=== PATIENT | male | born 1950 | race Caucasian/White ===

== ENCOUNTER 2017-11-17 15:05 | Inpatient (IN) ==
[2017-11-17] MEDS ORDERED: 0.9 % SODIUM CHLORIDE 1,000 ML IV ONE ×2 (15:30→15:31)
[2017-11-17] MEDS ORDERED: DEXAMETHASONE 10 MG/ML VIAL IV ONE (15:31)
--- NOTE | 2017-11-17 15:35 | Emergency Department Note ---
Weakness HPI - General Chief complaint: Weakness Stated complaint: Recheck, weak Time Seen by Provider: 11/17/17 15:07 Source: patient, family Mode of arrival: ambulatory Limitations: no limitations - History of Present Illness HPI Narrative: 67-year-old male presents with continued fatigue and feeling like his heart is racing on exertion as well as some mild shortness of breath. I saw him yesterday for hypotension and tachycardia. He states he is also feeling dizzy when he stands up. He was feeling a lot better yesterday after 3 L of fluid. He states that today when he is walking he feels some shortness of breath and dizziness. He denies any chest pain. He has been taking his medications as directed and took his metoprolol last evening and took his amlodipine this morning. He has not been checking his blood pressures at home. He denies having any significant bleeding today. He states he spit out some clots as well. Started his warfarin last night. He has adrenal insufficiency and skipped 2 days of his steroids and took them yesterday and today. He states he feels well if he is laying. He said he felt similar to this after his knee surgery. He states he has had diarrheal black stools in the last 2 days after he was bleeding from the mouth. He denies any black tarry stools prior to that. - Related Data Home Medications Medication Instructions Recorded Confirmed ascorbic acid (vitamin C) 500 mg 1 g PO BID tab 01/22/15 11/17/17 chewable tablet cholecalciferol (vitamin D3) 4,000 4,000 unit PO BID cap 01/22/15 11/17/17 unit capsule ferrous sulfate 325 mg (65 mg 975 mg PO BID tab 01/22/15 11/17/17 iron) tablet multivitamin,[id number] 1 tab PO BID tab 01/22/15 11/17/17 tablet vitamin E (dl, acetate) 400 unit 400 unit PO HS cap 01/22/15 11/17/17 capsule Previous Rx's Medication Instructions Recorded Docusate Sodium [Colace] 100 mg PO BID PRN #30 cap 05/19/16 spironolactone 25 mg tablet 25 mg PO QDAY #30 tab 11/11/16 fludrocortisone 0.1 mg tablet 0.1 mg PO QDAY #30 tab 06/22/17 pravastatin 40 mg tablet 40 mg PO QHS #30 tab 06/22/17 lisinopril 20 2 tab PO QDAY #60 tab 06/23/17 mg-hydrochlorothiazide 12.5 mg tablet hydrocortisone 20 mg tablet 20 mg PO BID #60 tab 08/19/17 methocarbamol 750 mg tablet 750 mg PO Q8H PRN #90 tab 09/19/17 warfarin 5 mg tablet 5 mg PO .COMPLEX #30 tab 09/19/17 amlodipine 10 mg tablet 10 mg PO QDAY #30 tab 10/18/17 gemfibrozil 600 mg tablet 600 mg PO BID #60 tab 10/18/17 metoprolol succinate ER 25 mg 25 mg PO HS #30 tab 10/18/17 tablet,extended release 24 hr potassium chloride ER 10 mEq 10 meq PO HS #30 tab 10/18/17 tablet,extended release lisinopril 20 mg tablet 20 mg PO QDAY #30 tab 10/27/17 alprazolam 0.5 mg tablet 0.5 mg PO .COMPLEX #20 tab 11/02/17 hydrocodone 10 mg-acetaminophen 1 - 2 tab PO TID PRN #90 tab 11/02/17 325 mg tablet Allergies Allergy/AdvReac Type Severity Reaction Status Date / Time cephalexin [From Keflex] Allergy Mild Itching Verified 11/17/17 15:05 Review of Systems All systems ED: reviewed and negative except as stated. Past Medical History - Past Medical History Medical history: Reports: other (adrenal insufficiency, factor V leiden, anemia) Psychiatric history: Reports: no psych history Surgical history ED: Reports: non-contributory Family history: Reports: non-contributory - Social History smoking status: Former smoker Physical Exam Limitations: no limitations General appearance: alert, in no apparent distress Head: atraumatic Eye: Present: normal appearance, PERRL, EOMI. Absent: conjunctival injection Neck: Present: normal inspection, full ROM Chest: Present: normal inspection, symmetric chest wall rise Respiratory: Present: normal lung sounds bilaterally Cardiovascular: Present: tachycardia, normal heart sounds Abdominal: Present: soft, normal bowel sounds. Absent: tenderness Extremities: Present: normal inspection, full ROM. Absent: pedal edema Neurological: Present: alert, oriented X3 Psychiatric: Present: normal affect, normal mood Skin: Present: warm, dry, intact Course Vital Signs Temperature 98.3 F 11/17/17 15:05 Pulse Rate 102 H 11/17/17 15:05 Respiratory Rate 18 11/17/17 15:05 Blood Pressure 108/64 11/17/17 15:05 Pulse Oximetry (%) 100 11/17/17 15:05 Temperature 98.3 F 11/17/17 15:05 Pulse Rate 117 H 11/17/17 17:46 Respiratory Rate 19 11/17/17 17:46 Blood Pressure 123/63 11/17/17 17:46 Pulse Oximetry (%) 100 11/17/17 17:46 Weakness - MDM Narrative Medical decision making narrative: Significant drop in hemoglobin. Maxwell was consulted. His bleeding in his gums has stopped and he will do a scope if he has continued bleeding. He has been transfused 2 units of blood and will be admitted to the ICU - Lab Data Lab results reviewed: Yes I reviewed the patient's lab results. Result diagrams: 11/17/17 16:03 11/17/17 15:28 Lab Results 11/17/17 11/17/17 11/17/17 Range/Units 15:28 15:28 15:28 WBC 13.7 H (4.5-11.0) K/mcL RBC 1.86 L (4.50-5.90) M/mcL Hgb 6.3 L* (13.5-16.5) g/dL Hct 18.4 L* (41.0-55.0) % POC Hct 17.0 L* (41.0-55.0) % MCV 98.6 (80.0-100.0) fL MCH 33.7 (26.0-34.0) pg MCHC 34.2 (31.0-36.0) g/dL RDW 13.8 (11.5-14.5) % Plt Count 158 (140-440) K/mcL MPV 8.6 (7.4-10.4) fL Gran % 82.7 H (38.0-78.0) % Lymph % (Auto) 9.7 L (15.5-49.0) % [place] % (Auto) 7.2 (1.0-12.0) % Eos % (Auto) 0.3 (0.0-7.0) % Baso % (Auto) 0.1 (0.0-2.0) % Gran # 11.3 H (1.8-8.0) K/mcL Lymph # (Auto) 1.3 L (1.5-4.8) K/mcL [place] # (Auto) 1.0 H (0.1-0.9) K/mcL Eos # (Auto) 0 (0.0-0.7) K/mcL Baso # (Auto) 0 (0.0-0.3) K/mcL PT (11.9-14.5) sec INR (0.9-1.1) D-Dimer (0.00-0.40) ug/ml VBG Lactic Acid (0.5-2.2) mmol/L POC Sodium 143 (133-145) mmol/L Sodium 143 (133-145) mmol/L POC Potassium 3.8 (3.3-5.1) mmol/L Potassium 3.9 (3.3-5.1) mmol/L POC Chloride 112 H (96-108) mmol/L Chloride 108 (96-108) mmol/L Carbon Dioxide 19 L (22-30) mmol/L POC Total CO2 19 L (22-30) mmol/L Anion Gap 16.0 (8-16) POC BUN 104 H* (8-23) mg/dl BUN 98 H (8-23) mg/dl Creatinine 1.6 H (0.7-1.2) mg/dl POC Creatinine 1.5 H (0.7-1.2) mg/dl GFR Calculation 44 Glucose 123 H (70-105) mg/dL POC Glucose 121 H (70-105) mg/dL Calcium 9.2 (8.6-10.4) mg/dl POC WB Ioniz Calcium 1.32 (1.16-1.32) mmol/L Total Bilirubin 0.2 (0.0-1.0) mg/dL AST 22 (0-37) U/l ALT 26 (0-40) U/l Alkaline Phosphatase 43 (39-117) U/L Troponin T (0-0.03) ng/ml C-Reactive Protein 1.4 H (0.0-0.8) mg/dl NT-Pro-B Natriuret Pep (0-125) pg/ml Total Protein 5.5 L (5.9-8.4) gm/dL Albumin 3.6 (3.2-5.2) gm/dL Globulin 1.9 L (2.2-3.7) gm/dL Albumin/Globulin Ratio 1.9 (1.0-2.3) Procalcitonin 0.50 (<0.10) ng/mL 11/17/17 11/17/17 11/17/17 Range/Units 15:30 15:30 15:30 WBC (4.5-11.0) K/mcL RBC (4.50-5.90) M/mcL Hgb (13.5-16.5) g/dL Hct (41.0-55.0) % POC Hct (41.0-55.0) % MCV (80.0-100.0) fL MCH (26.0-34.0) pg MCHC (31.0-36.0) g/dL RDW (11.5-14.5) % Plt Count (140-440) K/mcL MPV (7.4-10.4) fL Gran % (38.0-78.0) % Lymph % (Auto) (15.5-49.0) % [place] % (Auto) (1.0-12.0) % Eos % (Auto) (0.0-7.0) % Baso % (Auto) (0.0-2.0) % Gran # (1.8-8.0) K/mcL Lymph # (Auto) (1.5-4.8) K/mcL [place] # (Auto) (0.1-0.9) K/mcL Eos # (Auto) (0.0-0.7) K/mcL Baso # (Auto) (0.0-0.3) K/mcL PT 19.2 H (11.9-14.5) sec INR 1.6 H (0.9-1.1) D-Dimer (0.00-0.40) ug/ml VBG Lactic Acid 1.5 (0.5-2.2) mmol/L POC Sodium (133-145) mmol/L Sodium (133-145) mmol/L POC Potassium (3.3-5.1) mmol/L Potassium (3.3-5.1) mmol/L POC Chloride (96-108) mmol/L Chloride (96-108) mmol/L Carbon Dioxide (22-30) mmol/L POC Total CO2 (22-30) mmol/L Anion Gap (8-16) POC BUN (8-23) mg/dl BUN (8-23) mg/dl Creatinine (0.7-1.2) mg/dl POC Creatinine (0.7-1.2) mg/dl GFR Calculation Glucose (70-105) mg/dL POC Glucose (70-105) mg/dL Calcium (8.6-10.4) mg/dl POC WB Ioniz Calcium (1.16-1.32) mmol/L Total Bilirubin (0.0-1.0) mg/dL AST (0-37) U/l ALT (0-40) U/l Alkaline Phosphatase (39-117) U/L Troponin T (0-0.03) ng/ml C-Reactive Protein (0.0-0.8) mg/dl NT-Pro-B Natriuret Pep 246.4 H (0-125) pg/ml Total Protein (5.9-8.4) gm/dL Albumin (3.2-5.2) gm/dL Globulin (2.2-3.7) gm/dL Albumin/Globulin Ratio (1.0-2.3) Procalcitonin (<0.10) ng/mL 11/17/17 11/17/17 11/17/17 Range/Units 15:30 15:31 15:31 WBC (4.5-11.0) K/mcL RBC (4.50-5.90) M/mcL Hgb (13.5-16.5) g/dL Hct (41.0-55.0) % POC Hct (41.0-55.0) % MCV (80.0-100.0) fL MCH (26.0-34.0) pg MCHC (31.0-36.0) g/dL RDW (11.5-14.5) % Plt Count (140-440) K/mcL MPV (7.4-10.4) fL Gran % (38.0-78.0) % Lymph % (Auto) (15.5-49.0) % [place] % (Auto) (1.0-12.0) % Eos % (Auto) (0.0-7.0) % Baso % (Auto) (0.0-2.0) % Gran # (1.8-8.0) K/mcL Lymph # (Auto) (1.5-4.8) K/mcL [place] # (Auto) (0.1-0.9) K/mcL Eos # (Auto) (0.0-0.7) K/mcL Baso # (Auto) (0.0-0.3) K/mcL PT (11.9-14.5) sec INR (0.9-1.1) D-Dimer 0.31 (0.00-0.40) ug/ml VBG Lactic Acid (0.5-2.2) mmol/L POC Sodium (133-145) mmol/L Sodium (133-145) mmol/L POC Potassium (3.3-5.1) mmol/L Potassium (3.3-5.1) mmol/L POC Chloride (96-108) mmol/L Chloride (96-108) mmol/L Carbon Dioxide (22-30) mmol/L POC Total CO2 (22-30) mmol/L Anion Gap (8-16) POC BUN (8-23) mg/dl BUN (8-23) mg/dl Creatinine (0.7-1.2) mg/dl POC Creatinine (0.7-1.2) mg/dl GFR Calculation Glucose (70-105) mg/dL POC Glucose (70-105) mg/dL Calcium (8.6-10.4) mg/dl POC WB Ioniz Calcium (1.16-1.32) mmol/L Total Bilirubin (0.0-1.0) mg/dL AST (0-37) U/l ALT (0-40) U/l Alkaline Phosphatase (39-117) U/L Troponin T < 0.01 < 0.01 (0-0.03) ng/ml C-Reactive Protein (0.0-0.8) mg/dl NT-Pro-B Natriuret Pep (0-125) pg/ml Total Protein (5.9-8.4) gm/dL Albumin (3.2-5.2) gm/dL Globulin (2.2-3.7) gm/dL Albumin/Globulin Ratio (1.0-2.3) Procalcitonin (<0.10) ng/mL 11/17/17 Range/Units 16:03 WBC (4.5-11.0) K/mcL RBC (4.50-5.90) M/mcL Hgb 5.4 L* (13.5-16.5) g/dL Hct 15.7 L* (41.0-55.0) % POC Hct (41.0-55.0) % MCV (80.0-100.0) fL MCH (26.0-34.0) pg MCHC (31.0-36.0) g/dL RDW (11.5-14.5) % Plt Count (140-440) K/mcL MPV (7.4-10.4) fL Gran % (38.0-78.0) % Lymph % (Auto) (15.5-49.0) % [place] % (Auto) (1.0-12.0) % Eos % (Auto) (0.0-7.0) % Baso % (Auto) (0.0-2.0) % Gran # (1.8-8.0) K/mcL Lymph # (Auto) (1.5-4.8) K/mcL [place] # (Auto) (0.1-0.9) K/mcL Eos # (Auto) (0.0-0.7) K/mcL Baso # (Auto) (0.0-0.3) K/mcL PT (11.9-14.5) sec INR (0.9-1.1) D-Dimer (0.00-0.40) ug/ml VBG Lactic Acid (0.5-2.2) mmol/L POC Sodium (133-145) mmol/L Sodium (133-145) mmol/L POC Potassium (3.3-5.1) mmol/L Potassium (3.3-5.1) mmol/L POC Chloride (96-108) mmol/L Chloride (96-108) mmol/L Carbon Dioxide (22-30) mmol/L POC Total CO2 (22-30) mmol/L Anion Gap (8-16) POC BUN (8-23) mg/dl BUN (8-23) mg/dl Creatinine (0.7-1.2) mg/dl POC Creatinine (0.7-1.2) mg/dl GFR Calculation Glucose (70-105) mg/dL POC Glucose (70-105) mg/dL Calcium (8.6-10.4) mg/dl POC WB Ioniz Calcium (1.16-1.32) mmol/L Total Bilirubin (0.0-1.0) mg/dL AST (0-37) U/l ALT (0-40) U/l Alkaline Phosphatase (39-117) U/L Troponin T (0-0.03) ng/ml C-Reactive Protein (0.0-0.8) mg/dl NT-Pro-B Natriuret Pep (0-125) pg/ml Total Protein (5.9-8.4) gm/dL Albumin (3.2-5.2) gm/dL Globulin (2.2-3.7) gm/dL Albumin/Globulin Ratio (1.0-2.3) Procalcitonin (<0.10) ng/mL - EKG Data EKG attestation: Yes I reviewed and interpreted this EKG. EKG results narrative: First EKG looks unchanged from yesterday. Second EKG shows maybe mild ischemia Disposition Pt seen by [facility] [employer]/PA only: No Clinical Impression: Hypotension, Anemia Disposition: Xfer As Inpt ([facility]) Condition: Serious Referrals: Katarzyna Huddleston ARNP [Primary Care Provider] -
[2017-11-17 16:03] LABS: Basophils # (Auto) 0 K/mcL (0.0-0.3); Basophils % (Auto) 0.1 % (0.0-2.0); Eosinophils # (Auto) 0 K/mcL (0.0-0.7); Eosinophils % (Auto) 0.3 % (0.0-7.0); Granulocytes % (Auto) 82.7 % (38.0-78.0); Lymphocytes # (Auto) 1.3 K/mcL (1.5-4.8); Lymphocytes % (Auto) 9.7 % (15.5-49.0); Mean Cell Volume 98.6 fL (80.0-100.0); Mean Corpuscular HGB Conc 34.2 g/dL (31.0-36.0); Mean Corpuscular Hemoglobin 33.7 pg (26.0-34.0); Monocytes % (Auto) 7.2 % (1.0-12.0); Platelet Count 158 K/mcL (140-440); RBC 1.86 M/mcL (4.50-5.90); Red Cell Distribution Width 13.8 % (11.5-14.5)
--- NOTE | 2017-11-17 16:18 | XRay Report ---
CLINICAL INFORMATION: Shortness of breath COMPARISON: 11/16/2017 FINDINGS: Heart size, mediastinum and pulmonary vessels are normal. Lungs are clear. No effusions. Bones and soft tissues are normal. IMPRESSION: Negative. Note: This is the patient's second emergency room visit in two days for chest pain and dyspnea. Consider CT coronary arteriogram. Interpreted and Authenticated by: Hugo Hernandez 11/17/17
[2017-11-17 16:20] LABS: proBNP 246.4 pg/ml (0-125)
[2017-11-17 16:25] LABS: ALT/SGPT 26 U/l (0-40); Albumin 3.6 gm/dL (3.2-5.2); Albumin/Globulin Ratio 1.9 (1.0-2.3); Alkaline Phosphatase 43 U/L (39-117); Blood Urea Nitrogen 98 mg/dl (8-23); C-Reactive Protein 1.4 mg/dl (0.0-0.8)
[2017-11-17] MEDS ORDERED: PANTOPRAZOLE 40 MG VIAL IV ONE (17:10)
--- NOTE | 2017-11-17 18:20 | Internal Med History&Physical ---
Medical - H&P: HPI Patient information: Note initiated : 11/17/17 at 6:15 pm Service Date, if different from initiated Date: [] Patient: Dennis Robertson a 67 y/o M admitted on for Recheck, weak. Chief Complaint: [] History of present illness: Mr. Robertson is a 67 year old M with history of adrenal insufficiency, factor 5 leiden mutation , presents to the ER for not feeling well since morning. He notes he has been very fatigued, has palpitations on minimal exertion. He gets dizzy when he stands up. The patient was in the emergency room yesterday with symptoms of low blood pressure dizziness shortness of breath. 2-3 days ago patient had dental extraction done, because of his hypercoagulation status, dental extraction was done on Lovenox. The patient had significant bleeding after dental extraction. He notes she lost a huge amounts of blood. The bleeding had stopped however the patient became symptomatic hypertensive dizzy and had presented to the ER yesterday. The patient also did not take his hydrocortisone for 2 days because of the bleeding and the dental procedure. The patient was evaluated yesterday in the ED, he received saline, he received IV dexamethasone, and his home dose of cortisone was resumed. At the time of discharge patient was back to his baseline he was feeling good until this morning. The patient feels okay while he is lying in bed and not doing any activity however his symptoms of shortness of breath fatigue are over exaggerated with minimal activity. He therefore came back to the ER for further evaluation. The patient also admits to having loose black tarry stools. While in the er lying in the bed the patient had a brief momemt of chest discomfort unable to charcterize it, but notes it resolved after he was given pantoprazole. no h/o cardiac disease, In the ER patient was afebrile, tachycardic, hypertensive on presentation, rectal exam did show black stools. The patient had a hemoglobin of 5.4, hematocrit of 15, WBC count of 13 platelet 158, INR 1.6 pro calcitonin 0.5 BUN 98 creatinine 1.6, bicarbonate was 19 potassium 3.9 glucose 123 troponin was negative BNP was 246, chest x-ray was negative for acute infiltrate or pathology , EKG showed sinus tachycardia nonspecific ST-T wave changes. Given that the patient had black tarry stools and significant bleeding Dr. Arreola was consulted who advised that this is most likely secondary to ingestion of his bleeding from his mouth. An EGD urgently is not indicated. Patient does have a history of peptic ulcer disease however does not report any bleeding in the past. The patient denies any use of aspirin and NSAIDs. He denies any active use of tobacco, he does have social EtOH intake but no heavy drinking. All systems: reviewed and no additional remarkable complaints except as stated ( as per hpi rest negative) Medical - H&P: [facility] Medical history: Medical History (Last Reviewed 11/02/17 @ 08:17 by PETAR Sood) Iron deficiency anemia (Chronic) Status post right knee replacement (Chronic) Chronic thumb pain, bilateral (Chronic) Pre-diabetes (Chronic) Hypertriglyceridemia (Chronic) residential current use of anticoagulant therapy (Chronic) Chronic low back pain (Chronic) Flying phobia (Chronic) Adrenal insufficiency (Chronic) Esophageal reflux (Chronic) Factor V deficiency (Chronic) Degenerative joint disease (Chronic) Coagulation defect (Chronic) Hypertension, essential, benign (Chronic) Peptic ulcer disease (Resolved) H/O endoscopy (Chronic) Anemia (Resolved) Diabetes mellitus, type II (Resolved) Hyperlipidemia (Resolved) Acute kidney failure (Inactive) Screening PSA (prostate specific antigen) (Inactive) Surgical history: Past Surgical History (Last Reviewed 11/02/17 @ 08:17 by PETAR Sood) H/O colonoscopy (Chronic 12/29/16) History of tonsillectomy (Chronic) History of back surgery (Chronic) History of appendectomy (Chronic) History of adenoidectomy (Chronic) Pertinent family history: Family History (Last Reviewed 11/02/17 @ 08:17 by PETAR Sood) Mother/69 History of secondary malignant neoplasm of bone and bone marrow Diabetes mellitus Father/71 Cardiac disease Diabetes mellitus Medical - H&P: Meds Home Medications Medication Instructions Recorded Confirmed Type ascorbic acid (vitamin C) 500 mg 1 g PO BID tab 01/22/15 11/17/17 History chewable tablet cholecalciferol (vitamin D3) 4,000 4,000 unit PO BID cap 01/22/15 11/17/17 History unit capsule ferrous sulfate 325 mg (65 mg 975 mg PO BID tab 01/22/15 11/17/17 History iron) tablet multivitamin,[id number] 1 tab PO BID tab 01/22/15 11/17/17 History tablet vitamin E (dl, acetate) 400 unit 400 unit PO HS cap 01/22/15 11/17/17 History capsule Docusate Sodium [Colace] 100 mg PO BID PRN #30 cap 05/19/16 11/17/17 Rx spironolactone 25 mg tablet 25 mg PO QDAY #30 tab 11/11/16 11/17/17 Rx fludrocortisone 0.1 mg tablet 0.1 mg PO QDAY #30 tab 06/22/17 11/17/17 Rx pravastatin 40 mg tablet 40 mg PO QHS #30 tab 06/22/17 11/17/17 Rx lisinopril 20 2 tab PO QDAY #60 tab 06/23/17 11/17/17 Rx mg-hydrochlorothiazide 12.5 mg tablet hydrocortisone 20 mg tablet 20 mg PO BID #60 tab 08/19/17 11/17/17 Rx methocarbamol 750 mg tablet 750 mg PO Q8H PRN #90 tab 09/19/17 11/17/17 Rx warfarin 5 mg tablet 5 mg PO .COMPLEX #30 tab 09/19/17 11/17/17 Rx amlodipine 10 mg tablet 10 mg PO QDAY #30 tab 10/18/17 11/17/17 Rx gemfibrozil 600 mg tablet 600 mg PO BID #60 tab 10/18/17 11/17/17 Rx metoprolol succinate ER 25 mg 25 mg PO HS #30 tab 10/18/17 11/17/17 Rx tablet,extended release 24 hr potassium chloride ER 10 mEq 10 meq PO HS #30 tab 10/18/17 11/17/17 Rx tablet,extended release lisinopril 20 mg tablet 20 mg PO QDAY #30 tab 10/27/17 11/17/17 Rx alprazolam 0.5 mg tablet 0.5 mg PO .COMPLEX #20 tab 11/02/17 11/17/17 Rx hydrocodone 10 mg-acetaminophen 1 - 2 tab PO TID PRN #90 tab 11/02/17 11/17/17 Rx 325 mg tablet Allergies Allergy/AdvReac Type Severity Reaction Status Date / Time cephalexin [From Keflex] Allergy Mild Itching Verified 11/17/17 15:05 Medical - H&P: Exam - Constitutional Vitals: Temp Pulse Resp BP Pulse Ox 98.3 F 117 H 19 123/63 100 11/17/17 15:05 11/17/17 17:46 11/17/17 17:46 11/17/17 17:46 11/17/17 17:46 Exam: GENERAL: The patient is a well-developed, well-nourished in no apparent distress. Is alert and oriented x3. VITAL SIGNS: Reviewed and as noted elsewhere. HEENT: Head is normocephalic and atraumatic. Extraocular muscles are intact. Pupils are equal, round, and reactive to light. Nares appeared normal. Mouth appears any without lesions. Mucous membranes are moist. Oral mucosa ok, poor dentition, upper dentures, lower 3 tooth extracted, not bleeding any more. NECK: Normal to inspection, Supple, No lymphadenopathy or thyromegaly. LUNGS: Air entry equal on both sides, no wheezing, crackles or rhonchi noted. No accessory muscles of respiration HEART: Regular rate tachycardic, rhythm normal, S1 and S2 heard, no Gallop, S3 or Rub Noted, No Gross murmur heard. ABDOMEN: Soft, nontender, and nondistended. Positive bowel sounds. No hepatosplenomegaly was noted. EXTREMITIES: No cyanosis, clubbing, rash, lesions or edema. NEUROLOGIC: Cranial nerves II through XII are grossly intact. Motor and Sensory System Grossly Intact PSYCHIATRIC: Normal affect, Normal Mood. Appropriate Behavior. SKIN: No ulceration or wounds noted, No jaundice, No rash noted. Medical - H&P: Reslt - Labs CBC & Chem 7: 11/17/17 16:03 11/17/17 15:28 Labs: Short CBC 11/17/17 11/17/17 Range/Units 15:28 16:03 WBC 13.7 H (4.5-11.0) K/mcL Hgb 6.3 L* 5.4 L* (13.5-16.5) g/dL Hct 18.4 L* 15.7 L* (41.0-55.0) % Plt Count 158 (140-440) K/mcL BMP 11/17/17 15:28 Sodium 143 Potassium 3.9 Chloride 108 Carbon Dioxide 19 L BUN 98 H Creatinine 1.6 H Glucose 123 H Calcium 9.2 Cardiac Enzymes 11/17/17 11/17/17 Range/Units 15:30 15:31 Troponin T < 0.01 < 0.01 (0-0.03) ng/ml Liver Function 11/17/17 Range/Units 15:28 Total Bilirubin 0.2 (0.0-1.0) mg/dL AST 22 (0-37) U/l ALT 26 (0-40) U/l Alkaline Phosphatase 43 (39-117) U/L Albumin 3.6 (3.2-5.2) gm/dL Medical - H&P: A/P - Narrative A/P Narrative: A/P Acute blood loose anemia: Monitor in PCU, bleed likely secondary to dental extraction, the patient does report severe bleeding. The patient was hypotensive and tachycardic. He is getting blood at this point in time. We will make sure that he gets at least 3-4 units of blood. I do not believe that the patient has a GI bleed at this stage given his history. I will keep him on IV PPIs nonetheless. He has had 30 has been reviewed by a GI physician. Should the patient's blood pressure drop but he become hemodynamically unstable despite being resuscitated I would have GI do an EGD scoping just to rule out any upper GI bleed given that he has a remote history of peptic ulcer disease Adrenal Insufficiency-IV dexamethasone given in the ED, continue with IV hydrocortisone while in the hospital, 200 mg in 24 hours planned. 50 mg every 6 hours. 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 He has been on Coumadin since then. Continue Coumadin for now, INR is 1.6 today. I am continuing the anticoagulation as the bleeding source has stopped for more than 24 hours, INR is subtherapeutic. I will be using heparin subcu at DVT prophylaxis doses along with SCD for now. 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
[2017-11-17 19:09] LABS: Appearance,Urine CLEAR; Bacteria,Urine 0 /hpf (0); Bilirubin,Urine NEG (NEG); Color,Urine YELLOW; Glucose,Urine (UA) NEGATIVE (NEG); Leukocyte Esterase,Urine NEG /uL (NEG); Protein,Urine NEG (NEG); Specific Gravity,Urine 1.017 (1.000-1.035); Urine Blood NEG mg/dL (<0.03); Urine RBC 0 /hpf (0-1); Urine Squamous Epithelial Cell 0 /hpf (0-4); Urine WBC < 1 /hpf (0-4); Urobilinogen,Urine NEG (NEG)
[2017-11-17] MEDS ORDERED: NALOXONE HCL 0.4 MG/ML VIAL IV PRN (19:22)
[2017-11-17] MEDS ORDERED: 0.9 % SODIUM CHLORIDE 250 ML IV SCH (19:22)
[2017-11-17] MEDS ORDERED: ATORVASTATIN 20 MG TABLET PO SCH (21:00)
[2017-11-17] MEDS: GEMFIBROZIL 600 MG TABLET PO SCH (21:13)
[2017-11-17] MEDS: HEPARIN 5,000 UNIT/ML VIAL SQ SCH (22:17)
[2017-11-17] MEDS: 0.9 % SODIUM CHLORIDE 10 ML SYRINGE IV SCH (22:18)
[2017-11-17] MEDS: HYDROcodone/APAP 10/325MG TABLET PO PRN (22:44)
[2017-11-18] MEDS: HYDROCORTISONE SOD SUCC 100 MG VIAL IV SCH ×2 (00:17→05:46)
[2017-11-18] MEDS: 0.9 % SODIUM CHLORIDE 10 ML SYRINGE IV SCH ×4 (05:46→20:32)
[2017-11-18] MEDS: HYDROcodone/APAP 10/325MG TABLET PO PRN ×3 (05:46→20:28)
[2017-11-18 07:04] LABS: Basophils # (Auto) 0 K/mcL (0.0-0.3); Basophils % (Auto) 0.1 % (0.0-2.0); Eosinophils # (Auto) 0 K/mcL (0.0-0.7); Eosinophils % (Auto) 0 % (0.0-7.0); Granulocytes % (Auto) 90.7 % (38.0-78.0); Lymphocytes # (Auto) 0.7 K/mcL (1.5-4.8); Lymphocytes % (Auto) 5.9 % (15.5-49.0); Mean Cell Volume 95.2 fL (80.0-100.0); Mean Corpuscular HGB Conc 33.1 g/dL (31.0-36.0); Mean Corpuscular Hemoglobin 31.5 pg (26.0-34.0); Monocytes # (Auto) 0.4 K/mcL (0.1-0.9); Monocytes % (Auto) 3.3 % (1.0-12.0); Platelet Count 118 K/mcL (140-440); RBC 2.72 M/mcL (4.50-5.90); Red Cell Distribution Width 16.9 % (11.5-14.5)
[2017-11-18] MEDS ORDERED: PANTOPRAZOLE 40 MG VIAL IV SCH (07:30)
[2017-11-18 07:38] LABS: ALT/SGPT 35 U/l (0-40); Albumin 3.5 gm/dL (3.2-5.2); Albumin/Globulin Ratio 1.8 (1.0-2.3); Alkaline Phosphatase 45 U/L (39-117); Bilirubin,Direct < 0.2 mg/dL (0.0-0.3); Blood Urea Nitrogen 64 mg/dl (8-23); Gamma Glutamyl Transpeptidase 13 U/L (8-61); Uric Acid 8.6 mg/dL (2.5-8.0)
[2017-11-18] MEDS: HEPARIN 5,000 UNIT/ML VIAL SQ SCH ×3 (08:38→20:26)
[2017-11-18] MEDS ORDERED: NALOXONE HCL 0.4 MG/ML VIAL IV PRN (08:41)
[2017-11-18] MEDS: GEMFIBROZIL 600 MG TABLET PO SCH ×3 (08:41→17:24)
[2017-11-18] MEDS: FLUDROCORTISONE 0.1 MG TABLET PO SCH (08:49)
[2017-11-18] MEDS ORDERED: FLUDROCORTISONE 0.1 MG TABLET PO SCH (09:00)
[2017-11-18] MEDS ORDERED: WARFARIN 2.5 MG TABLET PO ONE (14:00)
--- NOTE | 2017-11-18 16:48 | Internal Med Progress Note ---
Medical - PN: Subj Patient information: Note initiated : 11/18/17 at 4:44 pm Service Date, if different from initiated Date: [] Patient: Dennis Robertson a 67 y/o M admitted on 11/17/17 for Recheck, Weak/Blood Loss Anemia. Chief Complaint: [] Interval history: Mr. Robertson is a 67 year old M with history of adrenal insufficiency, factor 5 leiden mutation , presents to the ER for not feeling well since morning. He notes he has been very fatigued, has palpitations on minimal exertion. He gets dizzy when he stands up. The patient was in the emergency room yesterday with symptoms of low blood pressure dizziness shortness of breath. 2-3 days ago patient had dental extraction done, because of his hypercoagulation status, dental extraction was done on Lovenox. The patient had significant bleeding after dental extraction. He notes she lost a huge amounts of blood. The bleeding had stopped however the patient became symptomatic hypertensive dizzy and had presented to the ER yesterday. The patient also did not take his hydrocortisone for 2 days because of the bleeding and the dental procedure. The patient was evaluated yesterday in the ED, he received saline, he received IV dexamethasone, and his home dose of cortisone was resumed. At the time of discharge patient was back to his baseline he was feeling good until this morning. The patient feels okay while he is lying in bed and not doing any activity however his symptoms of shortness of breath fatigue are over exaggerated with minimal activity. He therefore came back to the ER for further evaluation. The patient also admits to having loose black tarry stools. While in the er lying in the bed the patient had a brief momemt of chest discomfort unable to charcterize it, but notes it resolved after he was given pantoprazole. no h/o cardiac disease, In the ER patient was afebrile, tachycardic, hypertensive on presentation, rectal exam did show black stools. The patient had a hemoglobin of 5.4, hematocrit of 15, WBC count of 13 platelet 158, INR 1.6 pro calcitonin 0.5 BUN 98 creatinine 1.6, bicarbonate was 19 potassium 3.9 glucose 123 troponin was negative BNP was 246, chest x-ray was negative for acute infiltrate or pathology , EKG showed sinus tachycardia nonspecific ST-T wave changes. Given that the patient had black tarry stools and significant bleeding Dr. Arreola was consulted who advised that this is most likely secondary to ingestion of his bleeding from his mouth. An EGD urgently is not indicated. Patient does have a history of peptic ulcer disease however does not report any bleeding in the past. The patient denies any use of aspirin and NSAIDs. He denies any active use of tobacco, he does have social EtOH intake but no heavy drinking. 11/18 Pt seen exained, ovenright tolerated blood transfusion well, is asymptomatic today home bp meds on hold as bp on the lower end of normal IV steroids stopped, he did get IV dexamethasone yesterday resumed home dose of oral corticosteroids will monitor and see how he does, xfer to med surg status if bp improves and pt remains stable, with stable hb, can consider d/c to home tomorrow if hb drops, will need EGD Pertinent ROS: Denies headache, dizziness Denies chest pain, palpitations Denies cough or shortness of breath Denies abdominal pain, nausea or vomiting. - Constitutional Vitals: Vital Signs Temp Pulse Resp BP Pulse Ox 98.9 F 90 16 104/85 100 11/18/17 16:00 11/18/17 06:01 11/18/17 16:33 11/18/17 16:00 11/18/17 16:33 Period Temp Pulse Resp BP Sys/Rivero Pulse Ox Last 24 Hr 98.3 F-100.2 F 90-122 8-26 93-146/39-85 98-100 Intake and Output 11/18/17 11/18/17 11/18/17 05:59 13:59 21:59 Intake Total 750 / 750 500 / 500 Output Total 800 / 800 300 / 300 Balance -744 / -744 450 / 450 500 / 500 Weight 181 lb 6.4 oz Patient Weight 11/19/17 05:59 Weight 181 lb 6.4 oz Intake & Output: Intake & Output 11/18/17 11/18/17 11/18/17 05:59 13:59 21:59 Intake Total 750 / 750 500 / 500 Output Total 800 / 800 300 / 300 Balance -744 / -744 450 / 450 500 / 500 Weight 181 lb 6.4 oz Intake: IV Sodium Chloride 0.9% 250 ml @ 56 / 56 20 mls/hr IV .[id number] [facility] Rx#: [id number] Oral 750 / 750 500 / 500 Output: Void Amount 800 / 800 300 / 300 Other: Meal Breakfast Lunch Percent of Meal Consumed 100% 100% Feeding Ability Independent # Voids 1 # Bowel Movements 1 Exam: Constitutional; Afebrile, cooperative, alert, not in distress. Eyes- No icterus, , No periorbital swelling Ears- Ext ear normal, hearing normal to conversation. Neck- Midline trachea, supple Respiratory system: Air Entry equal on both sides, No crackles or wheezing, no rhonchi. CVS- Rate rhythm regular, S1,S2 heard, no gallop, no rub. Abdomen- Soft nontender abdomen, no organomegaly, no tenderness, no guarding or rigidity, [employer]- AOOx3, moving all extremities, no gross focal deficit noted. Medical - PN: Obj Da - Labs CBC & Chem 7: 11/18/17 03:48 11/18/17 03:48 Labs: Abnormal Lab Results 11/18/17 11/18/17 11/18/17 03:48 03:48 03:48 WBC 11.7 H RBC 2.72 L Hgb 8.6 L Hct 25.9 L POC Hct RDW 16.9 H Plt Count 118 L Gran % 90.7 H Lymph % (Auto) 5.9 L Gran # 10.6 H Lymph # (Auto) 0.7 L [place] # (Auto) PT 21.4 H INR 1.8 H Sodium 146 H POC Chloride Chloride 112 H Carbon Dioxide 19 L POC Total CO2 POC BUN BUN 64 H Creatinine POC Creatinine Glucose 108 H POC Glucose Uric Acid 8.6 H C-Reactive Protein NT-Pro-B Natriuret Pep Total Protein 5.4 L Globulin 1.9 L Triglycerides 373 H 11/18/17 11/17/17 11/17/17 00:15 23:23 16:03 WBC RBC Hgb 8.7 L 5.4 L* Hct 25.5 L 15.7 L* POC Hct 22.0 L RDW Plt Count Gran % Lymph % (Auto) Gran # Lymph # (Auto) [place] # (Auto) PT INR Sodium POC Chloride 115 H Chloride Carbon Dioxide POC Total CO2 19 L POC BUN 73 H BUN Creatinine POC Creatinine 1.3 H Glucose POC Glucose 118 H Uric Acid C-Reactive Protein NT-Pro-B Natriuret Pep Total Protein Globulin Triglycerides 11/17/17 11/17/17 11/17/17 15:30 15:30 15:28 WBC RBC Hgb Hct POC Hct 17.0 L* RDW Plt Count Gran % Lymph % (Auto) Gran # Lymph # (Auto) [place] # (Auto) PT 19.2 H INR 1.6 H Sodium POC Chloride 112 H Chloride Carbon Dioxide 19 L POC Total CO2 19 L POC BUN 104 H* BUN 98 H Creatinine 1.6 H POC Creatinine 1.5 H Glucose 123 H POC Glucose 121 H Uric Acid C-Reactive Protein 1.4 H NT-Pro-B Natriuret Pep 246.4 H Total Protein 5.5 L Globulin 1.9 L Triglycerides 11/17/17 15:28 WBC 13.7 H RBC 1.86 L Hgb 6.3 L* Hct 18.4 L* POC Hct RDW Plt Count Gran % 82.7 H Lymph % (Auto) 9.7 L Gran # 11.3 H Lymph # (Auto) 1.3 L [place] # (Auto) 1.0 H PT INR Sodium POC Chloride Chloride Carbon Dioxide POC Total CO2 POC BUN BUN Creatinine POC Creatinine Glucose POC Glucose Uric Acid C-Reactive Protein NT-Pro-B Natriuret Pep Total Protein Globulin Triglycerides Meds: Medications Hydrocodone Bitart/Acetaminophen ([place] 10/325mg) 1 - 2 tab PO TIDP PRN PRN Reason: Severe pain; PAIN > 8 Last Admin: 11/18/17 15:33 Dose: 1 tab Atorvastatin Calcium (Lipitor) 10 mg PO HS [facility] Fludrocortisone Acetate (Florinef) 0.1 mg PO QDAY [facility] Last Admin: 11/18/17 08:49 Dose: Not Given Gemfibrozil (Lopid) 600 mg PO BIDAC [facility] Last Admin: 11/18/17 08:49 Dose: Not Given Heparin Sodium (Porcine) (Heparin) 5,000 unit SQ Q12 [facility] Last Admin: 11/18/17 08:49 Dose: Not Given Hydrocortisone (Cortef) 20 mg PO BID [facility] Naloxone HCl (Narcan) 0.1 mg IV Q2MIN PRN PRN Reason: Opiate Reversal Pantoprazole Sodium (Protonix) 40 mg IV BIDAC [facility] Sodium Chloride (Saline Flush) 10 ml IV Q8 [facility] Last Admin: 11/18/17 15:25 Dose: 10 ml Warfarin Sodium (Coumadin Per Pharmacy) 1 order PO UD [facility] Medical - PN: A/P - Time Spent With Patient Total time spent is greater than 50% in coordination of care (as documented) at patient's floor/unit and/or counseling patient: - Narrative A/P Narrative: A/P Acute blood loose anemia: s/p 3 units xfusion ,due to blood loss following denta extraction. Adrenal Insufficiency-IV dexamethasone given in the ED, IV corsiton was planned but given improvement in pts condition see how he does with his home dose. 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 He has been on Coumadin since then. INR 1.8, continue coumadin as Bleeding from dental extraction has stopped. Chr back pain/ OA-continue home pain medication regimen DVT hep sq, SCD Diet regular Full code Medical - PN: Qual - VTE Deep Vein Thrombosis/Pulmonary Embolism Present on Admission: No
[2017-11-18] MEDS: PANTOPRAZOLE 40 MG VIAL IV SCH (17:21)
[2017-11-18] MEDS ORDERED: ZOLPIDEM 5 MG TABLET PO PRN (20:14)
[2017-11-18] MEDS: HYDROCORTISONE 10 MG TABLET PO SCH (20:26)
[2017-11-18] MEDS ORDERED: ATORVASTATIN 20 MG TABLET PO SCH (21:00)
[2017-11-19 07:16] LABS: Basophils # (Auto) 0 K/mcL (0.0-0.3); Basophils % (Auto) 0.1 % (0.0-2.0); Eosinophils # (Auto) 0.1 K/mcL (0.0-0.7); Eosinophils % (Auto) 0.9 % (0.0-7.0); Granulocytes % (Auto) 72.5 % (38.0-78.0); Lymphocytes # (Auto) 1.5 K/mcL (1.5-4.8); Mean Cell Volume 95.7 fL (80.0-100.0); Mean Corpuscular HGB Conc 34.8 g/dL (31.0-36.0); Mean Corpuscular Hemoglobin 33.3 pg (26.0-34.0); Monocytes # (Auto) 0.5 K/mcL (0.1-0.9); Monocytes % (Auto) 6.5 % (1.0-12.0); Platelet Count 130 K/mcL (140-440); RBC 2.53 M/mcL (4.50-5.90); Red Cell Distribution Width 16.7 % (11.5-14.5)
[2017-11-19 07:40] LABS: ALT/SGPT 29 U/l (0-40); Albumin 3.4 gm/dL (3.2-5.2); Albumin/Globulin Ratio 1.7 (1.0-2.3); Alkaline Phosphatase 43 U/L (39-117); Bilirubin,Direct < 0.2 mg/dL (0.0-0.3); Blood Urea Nitrogen 38 mg/dl (8-23); Gamma Glutamyl Transpeptidase 14 U/L (8-61); Uric Acid 8.9 mg/dL (2.5-8.0)
[2017-11-19] MEDS: 0.9 % SODIUM CHLORIDE 10 ML SYRINGE IV SCH ×2 (09:43→13:32)
[2017-11-19] MEDS: HEPARIN 5,000 UNIT/ML VIAL SQ SCH (09:44)
[2017-11-19] MEDS: GEMFIBROZIL 600 MG TABLET PO SCH (09:44)
[2017-11-19] MEDS: HYDROCORTISONE 10 MG TABLET PO SCH (09:44)
[2017-11-19] MEDS: PANTOPRAZOLE 40 MG VIAL IV SCH (09:44)
[2017-11-19] MEDS: FLUDROCORTISONE 0.1 MG TABLET PO SCH (10:08)
[2017-11-19] MEDS ORDERED: WARFARIN 5 MG TABLET PO ONE (14:00)
--- NOTE | 2017-11-19 14:30 | Discharge Summary ---
Medical - DS: Prov Patient information: Note initiated : 11/19/17 at 2:25 pm Service Date, if different from initiated Date: [] Patient: Dennis Robertson 67 y/o M admitted on 11/17/17 for Recheck, Weak/Blood Loss Anemia. Chief Complaint: [] Date of admission: 11/17/17 19:00 Discharge date: 11/19/17 Primary care physician: Katarzyna Huddleston Admitting clinician: Yamile August Attending physician on admission: Yamile August Consults: 11/17/17 17:28 Consult to Physician [CONS] Stat Comment: Consulting Provider: Yamile August Reason For Exam: Physician to Consult Attending physician on discharge: Wicho Esqueda Discharging clinician: Wicho Esqueda Medical - DS: Meds - Discharge Medications Active and Home Medications: Home Medications ascorbic acid (vitamin C) 500 mg chewable tablet 1 g PO BID tab 01/22/15 [ History Confirmed 11/17/17 Last Taken 05/17/16] cholecalciferol (vitamin D3) 4,000 unit capsule 4,000 unit PO BID cap 01/22/15 [History Confirmed 11/17/17 Last Taken 05/17/16] ferrous sulfate 325 mg (65 mg iron) tablet 975 mg PO BID tab 01/22/15 [History Confirmed 11/17/17 Last Taken 05/17/16] multivitamin,an-sgji-cnznwhpv tablet 1 tab PO BID tab 01/22/15 [History Confirmed 11/17/17 Last Taken 05/17/16] vitamin E (dl, acetate) 400 unit capsule 400 unit PO HS cap 01/22/15 [History Confirmed 11/17/17 Last Taken 05/17/16] Docusate Sodium [Colace] 100 mg PO BID PRN #30 cap 05/19/16 [Rx Confirmed Last Taken Unknown] fludrocortisone 0.1 mg tablet 0.1 mg PO QDAY #30 tab 06/22/17 [Rx Confirmed 12/28 Last Taken Unknown] pravastatin 40 mg tablet 40 mg PO QHS #30 tab 06/22/17 [Rx Confirmed 11/17/17 Last Taken Unknown] lisinopril 20 mg-hydrochlorothiazide 12.5 mg tablet 2 tab PO QDAY #60 tab [Rx Confirmed 11/17/17 Last Taken Unknown] methocarbamol 750 mg tablet 750 mg PO Q8H PRN #90 tab 09/19/17 [Rx Confirmed 12/28 Last Taken Unknown] warfarin 5 mg tablet 5 mg PO .COMPLEX #30 tab 09/19/17 [Rx Confirmed 11/17/17 Last Taken Unknown] amlodipine 10 mg tablet 10 mg PO QDAY #30 tab 10/18/17 [Rx Confirmed 11/17/17 Last Taken Unknown] gemfibrozil 600 mg tablet 600 mg PO BID #60 tab 10/18/17 [Rx Confirmed 11/17/17 Last Taken Unknown] metoprolol succinate ER 25 mg tablet,extended release 24 hr 25 mg PO HS #30 tab 10/18/17 [Rx Confirmed 11/17/17 Last Taken Unknown] potassium chloride ER 10 mEq tablet,extended release 10 meq PO HS #30 tab [Rx Confirmed 11/17/17 Last Taken Unknown] lisinopril 20 mg tablet 20 mg PO QDAY #30 tab 10/27/17 [Rx Confirmed 11/17/17 Last Taken Unknown] alprazolam 0.5 mg tablet 0.5 mg PO .COMPLEX #20 tab 11/02/17 [Rx Confirmed 11/17 Last Taken Unknown] hydrocodone 10 mg-acetaminophen 325 mg tablet 1 - 2 tab PO TID PRN #90 tab 11/02 [Rx Confirmed 11/17/17 Last Taken Unknown] hydrocortisone 20 mg tablet 20 mg PO BID #60 tab 11/18/17 [Rx Last Taken Unknown ] spironolactone 25 mg tablet 25 mg PO QDAY #90 tab 11/18/17 [Rx Last Taken Unknown] Medical - DS: Hosp Hospital course: Mr. Robertson is a 67 year old M with hx factor V leiden deficiency. He went for teeth extraction bridged on lovenox instead of warfarin but also did not take the hydrocortisone. Pt had marked bleeding for 24 hours came to [facility] and HCT looked ok so was going to follow up outpt then came in with adrenal crisis and was admitted and transfused 3 units. He had stress dose steroids initially then on home steroid dose. He has stable HCT at 24.5 now. Pt has resumed warfarin and will have follow up hct and inr on tuesday. He wants to fly to [place] on Tuesday. IF hct is not climbing he should postpone his trip. Follow with PCP on Tuesday. Discharge diagnosis: Acute blood loss anemia Secondary discharge diagnosis: Adrenal Crisis Factor V Leiden Deficiency Hypertension Reason for admission: acute adrenal crisis Pertinent studies/significant findings: hypotension, nausea, weakness - Time Spent with Patient Total time spent providing and/or coordinating discharge services: Greater than 30 minutes Medical - DS: Exam - Constitutional Vitals: Vital Signs Temp Pulse Resp BP BP Pulse Ox 11/19/17 11:00 98.5 F 16 125/75 99 11/19/17 06:39 98.8 F 16 122/75 98 11/19/17 03:56 97.6 F 74 14 107/63 96 11/18/17 23:56 98.7 F 88 14 104/65 99 11/18/17 20:16 98.4 F 84 16 120/72 98 11/18/17 17:17 98 F 16 119/77 99 11/18/17 16:33 16 100 11/18/17 16:00 98.9 F 16 104/85 100 Intake and Output 11/19/17 11/19/17 11/19/17 05:59 13:59 21:59 Intake Total 100 / 100 Balance 100 / 100 Intake: Oral 100 / 100 General appearance: average body habitus, no acute distress - Respiratory Respiratory exam: Present: normal respiratory exam, CTAB, stridor. Absent: rales, respiratory distress, rhonchi, wheezes - Cardiovascular Cardiovascular exam: Present: normal rate and rhythm. Absent: bradycardia, irregular rhythm - GI/Abdominal GI/Abdominal exam: Present: soft - Neurological Exam Neurological exam: Present: alert, oriented X3 - Psychiatric Psychiatric exam: Present: normal affect, normal mood - Skin Skin exam: Present: dry, normal color, warm Medical - DS: Data Labs on day of discharge: Labs from last 24 hours 11/19/17 11/19/17 11/19/17 06:07 06:07 06:07 WBC 7.8 RBC 2.53 L Hgb 8.4 L Hct 24.2 L MCV 95.7 MCH 33.3 MCHC 34.8 RDW 16.7 H Plt Count 130 L MPV 7.8 Gran % 72.5 Lymph % (Auto) 20.0 [place] % (Auto) 6.5 Eos % (Auto) 0.9 Baso % (Auto) 0.1 Gran # 5.6 Lymph # (Auto) 1.5 [place] # (Auto) 0.5 Eos # (Auto) 0.1 Baso # (Auto) 0 PT 20.1 H INR 1.7 H Sodium 146 H Potassium 3.7 Chloride 112 H Carbon Dioxide 24 Anion Gap 10.0 BUN 38 H Creatinine 1.3 H GFR Calculation 56 Glucose 87 Uric Acid 8.9 H Calcium 9.1 Phosphorus 3.1 Magnesium 2.1 Total Bilirubin 0.2 Direct Bilirubin < 0.2 GGT 14 AST 19 ALT 29 Alkaline Phosphatase 43 Lactate Dehydrogenase 146 Total Protein 5.4 L Albumin 3.4 Globulin 2.0 L Albumin/Globulin Ratio 1.7 Triglycerides 344 H Medical - DS: A/P - Patient/Caregiver Discharge Instructions Activity: increase activity as tolerated Diet: Regular Diet Other Amb Orders: Complete Blood Count Time Frame: 3 Days, Location: Determined By Patient Prothrombin Time INR Time Frame: 3 Days, Location: Determined By Patient - Follow up Plan Follow up with: Katarzyna Huddleston ARNP [Primary Care Provider] - (next week tuesday) Disposition: Home, Self-Care Prognosis: Good Rehab Potential: Good I certify that the patient requires SNF services: No Overall status at discharge: patient is progressing back to baseline Medical - DS: Qual - VTE Deep Vein Thrombosis/Pulmonary Embolism Present on Admission: No
== END 2017-11-19 15:45 | disposition home or self-care (01) | DRG 812 ==
LOC: ED 15:05 → ICU 19:00 → MEDSUR 11-18 16:30
PROVIDERS: ADMIT Internal Medicine; ATTEND Internal Medicine

== ENCOUNTER 2021-02-25 10:27 | Inpatient (IN) ==
[2021-02-25] MEDS ORDERED: ONDANSETRON 4 MG/2 ML VIAL IV ONE (11:07)
[2021-02-25] MEDS ORDERED: morphine 2 MG/ML VIAL IV PRN (11:07)
[2021-02-25] MEDS ORDERED: 0.9 % SODIUM CHLORIDE 1,000 ML IV ONE (11:07)
[2021-02-25] MEDS ORDERED: 0.9 % SODIUM CHLORIDE 250 ML IV SCH ×3 (11:15→12:15)
--- NOTE | 2021-02-25 11:26 | Emergency Department Note ---
GI Bleed HPI General Chief complaint: Rectal Bleed Stated complaint: Blood in stool & urine Time Seen by Provider: 02/25/21 10:57 Source: patient, family ( at bedside), RN notes reviewed and old records reviewed Mode of arrival: EMS Limitations: no limitations History of Present Illness HPI Narrative: Narrative: 71-year-old male complaining of bright red blood and coffee-ground stools for the last 3 days. Patient had an endoscopy 1 week ago and was told that there was no GI bleed active. And started having bleeding after the end of endoscopy was done at [facility]. Patient began noticing the bloody stools 3 to 4 days after endoscopy. Today the patient is feeling weak tired lightheaded with continued melanotic stools. Complains of shortness of breath. And at 1045 patient complained of substernal chest pain. is at bedside and is helping with history. MD complaint: melena Onset (ago): day(s) (3) Consistency: intermittent Severity: moderate Improves with: none Worsens with: bowel movement Context: history of GI bleed and anticoagulant use (On Coumadin for factor V deficiency.) Associated symptoms: Reports nausea, loss of appetite, malaise, easy bruising, shortness of breath, weakness and other (Patient developed chest pain at 1045); Denies abdominal pain, vomiting, epistaxis, fever, chills, headaches, rash, ot her bleeding and syncope Treatments Prior to Arrival: none Related Data Home Medications Medication Instructions Recorded Confirmed vitamin E (dl, acetate) 180 mg 400 unit PO HS cap 01/22/15 02/13/21 (400 unit) capsule ascorbic acid (vitamin C) 500 mg 1 g PO QDAY tab 10/09/20 02/13/21 chewable tablet cholecalciferol (vitamin D3) 100 See Rx Instructions PO QDAY cap 10/09/20 02/13/21 mcg (4,000 unit) capsule ferrous sulfate 325 mg (65 mg See Rx Instructions PO BID tab 10/09/20 02/13/21 iron) tablet hydrocortisone 20 mg tablet See Rx Instructions .ROUTE 10/09/20 02/13/21 .COMPLEX unknown measurement unit code: tablet multivitamin,db-awhe-sgpafyha 1 tab PO QDAY tab 10/09/20 02/13/21 warfarin 5 mg tablet 5 mg PO .COMPLEX tab 02/13/21 02/13/21 alprazolam 0.5 mg PO PRN PRN 02/25/21 02/25/21 amlodipine 10 mg PO HS 02/25/21 02/25/21 fludrocortisone 0.1 mg PO HS 02/25/21 02/25/21 gemfibrozil 1,200 mg PO HS 02/25/21 02/25/21 hydrocortisone 20 mg PO HS 02/25/21 02/25/21 lisinopril 20 mg PO HS 02/25/21 02/25/21 lisinopril-hydrochlorothiazide 2 tab PO HS 02/25/21 02/25/21 methocarbamol 750 mg PO Q8HP PRN 02/25/21 02/25/21 potassium chloride 10 meq PO HS 02/25/21 02/25/21 pravastatin 40 mg PO HS 02/25/21 02/25/21 sildenafil (pulm.hypertension) 20 mg PO HS 02/25/21 02/25/21 spironolactone 25 mg PO HS 02/25/21 02/25/21 warfarin 2.5 mg PO MOWEFR 02/25/21 02/25/21 Previous Rx's Medication Instructions Recorded metoprolol succinate 25 mg 25 mg PO QHS #90 tab 01/08/21 tablet,extended release 24 hr hydrocodone 10 mg-acetaminophen 1 - 2 tab PO TID PRN #90 tab 02/06/21 325 mg tablet Allergies Allergy/AdvReac Type Severity Reaction Status Date / Time cephalexin [From Keflex] Allergy Mild Itching Verified 02/25/21 10:29 Review of Systems ROS ROS Narrative: Narrative: Limitations: ROS unobtainable due to patients medical condition [facility] Narrative Patient History Narrative: Narrative: Medical/Surgical/Family History All Active Problems (Updated 02/25/21 @ 13:38 by Wicho Kim MD) UGIB (upper gastrointestinal bleed) (Acute) Cardiac ischemia (Acute) Anemia (Acute) Coagulopathy (Acute) Hypertension, essential, benign (Chronic) Coagulation defect (Chronic) Degenerative joint disease (Chronic) Factor V deficiency (Chronic) Esophageal reflux (Chronic) Adrenal insufficiency (Chronic) Flying phobia (Chronic) Chronic low back pain (Chronic) 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 resolved. seen at [facility]. can't take NSAIDs Acute prerenal azotemia Adrenal insufficiency 09/2007. 07/21/18 continue care with endocrinology Anemia has had a couple transfusions over the years Chronic low back pain pain contract signed 09/10/2020 total morphine equivalent= 30. saw Terry at [facility] Discussed medication benefit, risks and side effects. Discussed nonpharmacologic ways to treat pain, encouraged gentle stretching, range of motion, improving posture, walking program and use of ice and/or heat. 09/10/2020 stable on #90 hydrocodone 10/325, urine drug screen today 12/25/2020 stable Chronic thumb pain, bilateral trial of topical 3% diclofenac ordered to be compounded for patient. 03/02/16 improved. patient never picked up Rx due to cost Coagulation defect factor V deficiency prior to right knee surgery he was taking warfarin 5mg daily 05/2016 used Lovenox prior to R knee replacement surg and bridged back onto warfarin 11/2017 hospitalized, for post op bleeding after teeth removal, with adrenal crisis 09/10/2020 INR 2.8 continue current regimen, have monthly nurse visits for INR checks until follow-up with me in 3 months 10/10/2020 INR 1.9, continue current regimen, nurse visit for INR check in 1 month and follow-up here middle of December after labs 12/25/20 INR 2.6 continue current regimen, nurse visit for INR check in 1 month and 2 months, follow-up here in 3 Degenerative joint disease Diabetes mellitus, type II Erectile dysfunction Samples given in the past, currently unavailable Esophageal reflux Factor V deficiency 2007, taking warfarin since this time Flying phobia takes alprazolam as needed for flying, participating in Activities of considerable height. discussed medication use, rationale and side effects. Hyperlipidemia Hypertension, essential, benign 12/25/2020 stable on amlodipine 10mg , lisinopril 60mg, hydrochlorothiazide 25mg, spironolactone 25mg and potassium 10mg and Toprol 25 mg daily. Follow- up 3 months Hypertriglyceridemia 06/27/2019 continues to have elevated triglycerides, although improved. encouraged working on diet, exercise and working for weight loss. continue pravastatin 40mg and gemfibrozil 600 mg BID 10/23/2019 deteriorated, discussed results, encouraged healthy diet, exercise check again in 3 months, continue pravastatin and gemfibrozil 01/29/2020 improved from last check, plan to recheck in 3 months then follow- up with me 05/13/2020 most recent results deteriorated, encouraged healthy diet, exercise, continue pravastatin and gemfibrozil, recheck 3 months 09/10/2020 improved, continue pravastatin and gemfibrozil, recheck in 3 months 12/25/2020 return for fasting labs, anticipate lab work and follow-up every 4 months Iron deficiency anemia followed by gastroenterology. 2011 endoscopy done for severe iron deficiency anemia=hiatal hernia, possible gastric outlet obstruction from pyloric stenosis 06/11/2020 recently seen by [facility], plan to obtain CBC and stool studies in 1 month and if nothing seen considering a PillCam with [facility]. 09/10/2020 reviewed CBC, in and around the same, last note from [facility] states that he will need PillCam as the next step in evaluation, forward CBC to Dr. Arreola's office shelter current use of anticoagulant therapy Peptic ulcer disease 12/25/[address] Arreola Pre-diabetes last A1c 05/01/15= 5.4 07/07/17 A1c= 5.3 04/28/2020 A1c 5.8 Right knee pain 01/29/2020 nerve pain likely, continue to monitor and for persisting symptoms could consider gabapentin or similar Screening PSA (prostate specific antigen) Surgical History H/O colonoscopy (12/29/16) polyp found on first in 2006 and again [address] dowd. 2016 last colonoscopy 08/02/17 record release signed to obtain last colonoscopy results 06/01/20 Dr. Gamboa repeat 7 years H/O endoscopy 2011 for severe iron deficiency anemia, hiatal hernia, possible gastric outlet obstruction from pyloric stenosis History of adenoidectomy History of appendectomy History of back surgery 2003, 2012 low back surgery x 2 History of tonsillectomy Status post right knee replacement 07/02/16 continues physical therapy, orthopedics switched him from hydrocodone to Percocet, request records from orthopedics Family History Mother/69 History of secondary malignant neoplasm of bone and bone marrow resulted in Diabetes mellitus Father/71 Cardiac disease resulted in Diabetes mellitus Social History Smoking Status: Former smoker Alcohol Intake Frequency: a few times a month Substance Use: does not use Exam Narrative Narrative: Narrative: General Limitations: no limitations General appearance: Present alert and in no apparent distress Head Head: Present atraumatic, normocephalic and normal inspection Eye Eye: Present normal appearance, PERRL and EOMI; Absent scleral icterus and conjunctival injection ENT ENT: Present normal exam, normal oropharynx and mucous membranes moist Neck Neck: Present normal inspection, full ROM and trachea midline; Absent tenderness, lymphadenopathy and thyromegaly Chest Chest: Present normal inspection and symmetric chest wall rise Respiratory Respiratory: Present normal lung sounds bilaterally; Absent respiratory distress , wheezes, stridor, accessory muscle use and prolonged expiratory phase Cardiovascular Cardiovascular: Present normal rhythm, tachycardia and systolic murmur; Absent diastolic murmur Adbominal Abdominal: Present soft and diminished bowel sounds; Absent distention, tenderness, guarding, rebound, rigidity, organomegaly, trauma, Mcdonald's sign, tenderness at [place]Bur[place]'s Point, ascites, mass, bruit, pulsatile mass and hernia Rectal Rectal: Present normal inspection, normal rectal tone, heme (+) stool, black stool, tenderness, normal prostate and other (Black melanotic strongly heme positive stool); Absent bloody stool, fecal impaction, hemorrhoids, mass, prostate tenderness and prostate enlargement Extremities Extremities: Present normal inspection and full ROM; Absent tenderness, normal capillary refill, pedal edema, pretibial edema and calf tenderness Back Back: Present normal inspection and full ROM; Absent tenderness, CVA tenderness (R), CVA tenderness (L) and spinous process tenderness Neurological Neurological: Present alert, oriented X3 and normal gait; Absent motor sensory deficit Psychiatric Psychiatric: Present normal affect and normal mood Skin Skin: Present cool, dry and pallor Course Vital Signs Vital signs: Vital Signs Temperature 97.3 F 02/25/21 10:29 Pulse Rate 117 H 02/25/21 10:29 Respiratory Rate 20 02/25/21 10:29 Blood Pressure 93/57 02/25/21 10:29 Pulse Oximetry (%) 98 02/25/21 10:29 Temperature 94.8 F L 02/26/21 04:50 Pulse Rate 96 H 02/26/21 04:50 Respiratory Rate 20 02/26/21 04:50 Blood Pressure 87/58 02/26/21 04:50 Pulse Oximetry (%) 95 02/26/21 04:50 [facility] MDM Narrative Medical decision making narrative: Narrative: 71-year-old male with acute upper GI bleed with anemia hypotension and tachycardia patient had significant EKG changes and complaints of chest pain after arrival to the emergency department. I discussed patient with Dr. Sepulveda on-call for cardiology it was felt that the patient's EKG changes are ischemia from the patient's severe anemia he would not be a candidate for TPA as his INR is 5.3 from Coumadin would not be a candidate for the Phlebotomy Lab Assistant as he is hemodynamically unstable and he has ST depression without elevation. His recommendations were to reverse the INR and transfuse patient to address the root cause of the patient's ischemia. Discussed patient with Dr. Lund on-call for GI patient had a negative endoscopy 1 week ago and is bleeding now with an INR 5.3. Said he would not be a candidate for endoscopy and again recommended reversing the INR and transfuse patient received 2.5 mg of vitamin K IV 2 units of FFP was transfused with 2 units of O- emergent transfusion because of tachycardia hypotension and ischemic changes on EKG 2 units of packed red blood cells have been crossmatched are not being held. Differential Diagnosis Differential Diagnosis: Hyperanticoagulation, GI bleed, ulcer, gastritis Medical Records Medical records reviewed: Yes I reviewed the patient's medical records. Lab Data Lab results reviewed: Yes I reviewed the patient's lab results. Result diagrams: 02/26/21 02:06 02/25/21 11:40 Labs: Lab Results 02/25/21 02/25/21 02/25/21 Range/Units 11:40 11:40 11:40 WBC 14.7 H (4.5-11.0) K/mcL RBC 1.45 L (4.63-6.08) M/mcL Hgb 5.1 L* (13.7-17.5) g/dL Hct 14.7 L* (40.1-51.0) % POC Hct < 15 L* (41-55) % MCV 101.4 H (80.0-100.0) fL MCH 35.2 H (26.0-34.0) pg MCHC 34.7 (31.0-36.0) g/dL RDW 13.9 (11.5-14.5) % Plt Count 192 (140-440) K/mcL MPV 10.4 (7.4-10.4) fL Neut % (Auto) 80.5 H (38.0-78.0) % Lymph % (Auto) 8.9 L (15.5-49.0) % [place] % (Auto) 10.2 (1.0-12.0) % Eos % (Auto) 0.3 (0.0-7.0) % Baso % (Auto) 0.1 (0.0-2.0) % Lymph # (Auto) 1.30 L (1.50-4.80) K/mcL [place] # (Auto) 1.50 H (0.10-0.90) K/mcL Eos # (Auto) 0.05 (0.00-0.70) K/mcL Baso # (Auto) 0.01 (0.00-0.30) K/mcL Absolute Neutrophils 11.81 H (1.80-8.00) K/mcL POC PT 58.9 H (11.9-14.5) sec POC INR 5.3 H (0.8-1.2) POC Sodium 141 (133-145) mEq/L Sodium 141 (133-145) mmol/L POC Potassium 3.7 (3.3-5.1) mEql/L Potassium 3.8 (3.3-5.1) mmol/L POC Chloride 111 H (96-108) mEq/L Chloride 107 (96-108) mmol/L Carbon Dioxide 17 L (22-30) mmol/L POC Total CO2 18 L (22-30) mmol/L Anion Gap 17.0 H (8.0-16.0) POC BUN 106 H* (6-20) mg/dL BUN 91 H (8-23) mg/dL Creatinine 1.5 H (0.7-1.2) mg/dL POC Creatinine 1.8 H (0.6-1.2) mg/dL GFR Calculation 46 Glucose 117 H (70-105) mg/dL POC Glucose 121 H (70-105) mg/dL Calcium 9.0 (8.6-10.4) mg/dL POC WB Ioniz Calcium 1.20 (1.16-1.32) mmEq/L Total Bilirubin 0.2 (0.1-1.0) mg/dL AST 13 (<40) U/L ALT 13 (<40) U/L Alkaline Phosphatase 51 (39-117) U/L Troponin T (<0.03) ng/mL Total Protein 5.5 L (5.9-8.4) gm/dL Albumin 3.8 (3.2-5.2) gm/dL Globulin 1.7 L (2.2-3.7) gm/dL Albumin/Globulin Ratio 2.2 (1.0-2.3) 02/25/21 02/25/21 02/25/21 Range/Units 11:40 14:48 17:52 WBC (4.5-11.0) K/mcL RBC (4.63-6.08) M/mcL Hgb (13.7-17.5) g/dL Hct (40.1-51.0) % POC Hct 18 L* (41-55) % MCV (80.0-100.0) fL MCH (26.0-34.0) pg MCHC (31.0-36.0) g/dL RDW (11.5-14.5) % Plt Count (140-440) K/mcL MPV (7.4-10.4) fL Neut % (Auto) (38.0-78.0) % Lymph % (Auto) (15.5-49.0) % [place] % (Auto) (1.0-12.0) % Eos % (Auto) (0.0-7.0) % Baso % (Auto) (0.0-2.0) % Lymph # (Auto) (1.50-4.80) K/mcL [place] # (Auto) (0.10-0.90) K/mcL Eos # (Auto) (0.00-0.70) K/mcL Baso # (Auto) (0.00-0.30) K/mcL Absolute Neutrophils (1.80-8.00) K/mcL POC PT 54.1 H (11.9-14.5) sec POC INR 4.9 H (0.8-1.2) POC Sodium 141 (133-145) mEq/L Sodium (133-145) mmol/L POC Potassium 3.6 (3.3-5.1) mEql/L Potassium (3.3-5.1) mmol/L POC Chloride 108 (96-108) mEq/L Chloride (96-108) mmol/L Carbon Dioxide (22-30) mmol/L POC Total CO2 21 L (22-30) mmol/L Anion Gap (8.0-16.0) POC BUN 96 H (6-20) mg/dL BUN (8-23) mg/dL Creatinine (0.7-1.2) mg/dL POC Creatinine 1.7 H (0.6-1.2) mg/dL GFR Calculation Glucose (70-105) mg/dL POC Glucose 101 (70-105) mg/dL Calcium (8.6-10.4) mg/dL POC WB Ioniz Calcium 1.18 (1.16-1.32) mmEq/L Total Bilirubin (0.1-1.0) mg/dL AST (<40) U/L ALT (<40) U/L Alkaline Phosphatase (39-117) U/L Troponin T 0.01 (<0.03) ng/mL Total Protein (5.9-8.4) gm/dL Albumin (3.2-5.2) gm/dL Globulin (2.2-3.7) gm/dL Albumin/Globulin Ratio (1.0-2.3) ED POC Tests ED POC Tests: JEFFERY - SARS Antigen Negative Radiology Data Radiology results reviewed: Yes I reviewed the patient's radiology results. EKG Data EKG #1: EKG attestation: Yes I reviewed and interpreted this EKG. EKG shows normal: sinus rhythm Rate: tachycardia (108) [place]/QRS: normal Voltage: decreased voltage throughout Heart block present: None ST segment elevation in: aVR ST segment depression in: II, v3, v4, v5 and v6 Hyperacute T waves: None QTc: normal QRS morphology: Present poor R-wave progression When compared to previous EKG there are: changes noted (ST elevation in our and depression in V3 through 6 are acute change when compared to EKG from November 17, 2017) Interpretation: subendocardial ischemia EKG #2: EKG attestation: Yes I reviewed and interpreted this EKG. EKG results narrative: EKG done at 1503 after blood transfusion with resolution of ischemic changes in inferior lateral leads. EKG shows normal: sinus rhythm Rate: tachycardia (103) When compared to previous EKG there are: changes noted Pulse Oximetry Data Pulse Ox %: 100 Interpretation: 100% on room air within normal limits. CC TIME Critical Care Time Critical Care Time: Yes Total Critical Care Time: 60 Attestation: Approximately [60] minutes of critical care time was used in order to assess and manage the high probability of imminent or life threatening deterioration to [cardiac with ischemic changes on EKG gastrointestinal with GI bleed anemia with hypotension and tachycardia.] which required my highest level of preparedness and interventions with frequent patient assessments. This time is excluding time spent on separately billable procedures. Discharge Plan Patient/Caregiver Discharge Instructions Pt seen by CLIENT SERVICE AND CONSULTING MANAGER/PA only: No Clinical Impression: UGIB (upper gastrointestinal bleed), Factor V deficiency, Cardiac ischemia, Coagulopathy Anemia Qualifiers: Anemia type: iron deficiency Iron deficiency anemia type: chronic blood loss Qualified Code(s): D50.0 - Iron deficiency anemia secondary to blood loss (chronic) Patient Disposition: Xfer As Inpt ([facility]) Discharge Date/Time: 02/25/21 19:55
--- NOTE | 2021-02-25 11:44 | XRay Report ---
HISTORY: Blood in stool and urine FINDINGS: The lungs are clear and well expanded. The heart, mediastinum, kamini and pleura are normal. There has been no significant change since 11/17/17. IMPRESSION: Normal exam Interpreted and Authenticated by: Roverto Davenport 02/25/21
[2021-02-25 12:18] LABS: POC Blood Urea Nitrogen 106 mg/dL (6-20); POC CO2 18 mmol/L (22-30); POC Chloride 111 mEq/L (96-108); POC Creatinine 1.8 mg/dL (0.6-1.2); POC Glucose, Random 121 mg/dL (70-105); POC Hematocrit < 15 % (41-55); POC Potassium 3.7 mEql/L (3.3-5.1); POC Sodium 141 mEq/L (133-145)
[2021-02-25 12:19] LABS: POC INR 5.3 (0.8-1.2); POC Pro Time 58.9 sec (11.9-14.5)
[2021-02-25] MEDS ORDERED: PHYTONADIONE 2.5 MG in 0.9 % SODIUM CHLORIDE 50 ML IV ONE (12:21)
[2021-02-25 13:21] LABS: Basophils # (Auto) 0.01 K/mcL (0.00-0.30); Basophils % (Auto) 0.1 % (0.0-2.0); Eosinophils # (Auto) 0.05 K/mcL (0.00-0.70); Eosinophils % (Auto) 0.3 % (0.0-7.0); Hematocrit 14.7 % (40.1-51.0); Hemoglobin 5.1 g/dL (13.7-17.5); Lymphocytes % (Auto) 8.9 % (15.5-49.0); Mean Cell Volume 101.4 fL (80.0-100.0); Mean Corpuscular HGB Conc 34.7 g/dL (31.0-36.0); Mean Platelet Volume 10.4 fL (7.4-10.4); Monocytes % (Auto) 10.2 % (1.0-12.0); Neutrophils % (Auto) 80.5 % (38.0-78.0); Platelet Count 192 K/mcL (140-440); RBC 1.45 M/mcL (4.63-6.08); Red Cell Distribution Width 13.9 % (11.5-14.5); WBC 14.7 K/mcL (4.5-11.0)
[2021-02-25 13:31] LABS: ALT/SGPT 13 U/L (<40); AST/SGOT 13 U/L (<40); Albumin 3.8 gm/dL (3.2-5.2); Albumin/Globulin Ratio 2.2 (1.0-2.3); Alkaline Phosphatase 51 U/L (39-117); Bilirubin,Total 0.2 mg/dL (0.1-1.0); Blood Urea Nitrogen 91 mg/dL (8-23); Carbon Dioxide 17 mmol/L (22-30); Chloride 107 mmol/L (96-108); Globulin 1.7 gm/dL (2.2-3.7); Glomerular Filtration Rate 46; Glucose 117 mg/dL (70-105)
--- NOTE | 2021-02-25 14:26 | Cat Scan Report ---
History: Severe rectal bleeding, blood in urine, recent upper endoscopy, abnormally elevated INR TECHNIQUE:6 the patient was imaged without contrast in axial plane at 2.5 mm intervals. Sagittal and coronal reformats were created. Radiation exposure was limited using dose reduction technology. FINDINGS: The lung bases are clear. Distal esophagus appears normal and there is no bleeding around the esophagus. The stomach is collapsed and the wall does not appear abnormally thickened or inflamed. There are couple small cysts in the liver. These were seen on a prior CT on 12/26/07. Largest is 1 cm. Spleen is normal in size. No abnormality is seen within the pancreas. The gallbladder is normal with no stones or thickening of the wall. The bile ducts are nondilated. The adrenals are normal. Numerous cysts are present in both kidneys. At the upper pole of the right kidney there is an exophytic 4.5 x 5.1 cm cyst. This has a calcified septation within it. Laterally in the middle third of the right kidney there is a 1.2 x 1.6 cm complex cyst with homogeneous high attenuation material within it. This may contain blood or proteinaceous debris. There are several other simple cysts in and adjacent to the right kidney. These have increased in size and number since 2008. The calcification in the upper pole cyst is new and the complex high attenuation cystic lesion is also new. In the left kidney the largest cyst is in the upper pole and measures 5.1 x 5.9 cm. Posterior and inferior to the large cyst, there is another exophytic cyst which measures 2.5 x 3.1 cm. It contains calcifications along the peripheral capsule. There are three nonobstructing stones in the left kidney. The largest is in the middle third and measures 4 x 6 mm. In The proximal third of the right ureter there is a 4 x 4 mm calculus. There is no associated hydronephrosis. There is stranding around the right kidney. Left ureter is normal. There are no stones within the urinary bladder. There is a large amount of fluid within normal caliber small intestine. Few air-fluid levels are seen in the small intestine. The wall of the small intestine is not thickened or inflamed. The terminal ileum is normal. A large amount liquefied stool is present throughout the large intestine. There are multiple flecks of dense radiopaque material in the colon which may be contrast from a prior outside exam. There is no obvious tumor or inflammation in the large intestine. There are couple noninflamed diverticula in the descending and proximal sigmoid colon. Prostate is moderately enlarged. Seminal vesicles appear normal. Severe degenerative disc disease and arthritis are present from L1-2 through L5-S1. Large amount calcified plaque is present along the wall normal caliber abdominal aorta. No adenopathy free fluid or abscess are present within the abdomen or pelvis. IMPRESSION: 4 mm nonobstructing stone in the proximal right ureter Complex cysts in both kidneys Large amount of liquefied stool in the colon. The source of the gastrointestinal bleeding is not identified. Dr. Kim was called with the report Interpreted and Authenticated by: Roverto Davenport 02/25/21
[2021-02-25 15:43] LABS: POC INR 4.9 (0.8-1.2); POC Pro Time 54.1 sec (11.9-14.5)
[2021-02-25 18:08] LABS: POC Blood Urea Nitrogen 96 mg/dL (6-20); POC CO2 21 mmol/L (22-30); POC Calcium, Ionized 1.18 mmEq/L (1.16-1.32); POC Chloride 108 mEq/L (96-108); POC Creatinine 1.7 mg/dL (0.6-1.2); POC Glucose, Random 101 mg/dL (70-105); POC Hematocrit 18 % (41-55); POC Potassium 3.6 mEql/L (3.3-5.1); POC Sodium 141 mEq/L (133-145)
--- NOTE | 2021-02-25 18:12 | Internal Med History&Physical ---
HPI History of Present Illness Patient information: Note initiated : 02/25/21 at 5:58 pm Service Date, if different from initiated Date: [] Patient: Dennis Robertson 71 y/o M admitted on for Blood in stool & urine. Chief Complaint: [] History of present illness: Mr. Robertson is a 71 year old male with a history of hypertension, adrenal insufficiency, CKD, Factor V Leiden on Coumadin who had an EGD on 02/18/21 along with two polypectomies of two small duodenal polyps as well as a biopsy of the jejunum. The patient says he started his coumadin the day after the procedure. Over the next weekend he developed progressive fatigue followed by exertional chest discomfort. A few days ago developed melanotic stools. He presented to the ED where he was found to have a hemoglobin of 5.1 and received multiple units of red blood cells. The patient's INR was 5.3, he was given multiple units of FFP and also vitamin K IV. Hospital medicine was asked to admit the patient. The initial EKG showed ST segment depressions in leads V3-V6 that resolved after the patient received blood transfusions. The patient's chest pain also resolved. Review of systems Constitutional: no fever, fatigue, or weight loss Eyes: no vision changes or pain Cardiovascular: resolved chest pain, no palpitations Respiratory: no cough or dyspnea Gastrointestinal: no abdominal pain, no nausea, vomiting, positive for dark stools Genitourinary: no dysuria or difficulty voiding Musculoskeletal: no arthralgia or myalgia Integumentary: no skin lesion or wound Neurological: no focal weakness or numbness Psychiatric: no anxiety or depression Physical exam Head: Atraumatic, normal inspection. Eyes: normal appearance, no scleral icterus. Neck: full ROM Respiratory: no respiratory distress. Cardiovascular: normal rate and rhythm, S1, S2. GI/Abdominal: soft, nontender, no guarding. Extremities: full range of motion, nontender. Neurological: CN II-XII intact, intact motor, intact sensation. Psychiatric: normal mood. 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 resolved. seen at [facility]. can't take NSAIDs Acute prerenal azotemia Adrenal insufficiency 09/2007. 07/21/18 continue care with endocrinology Anemia has had a couple transfusions over the years Chronic low back pain pain contract signed 09/10/2020 total morphine equivalent= 30. saw [facility] Discussed medication benefit, risks and side effects. Discussed nonpharmacologic ways to treat pain, encouraged gentle stretching, range of motion, improving posture, walking program and use of ice and/or heat. 09/10/2020 stable on #90 hydrocodone 10/325, urine drug screen today 12/25/2020 stable Chronic thumb pain, bilateral trial of topical 3% diclofenac ordered to be compounded for patient. 03/02/16 improved. patient never picked up Rx due to cost Coagulation defect factor V deficiency prior to right knee surgery he was taking warfarin 5mg daily 05/2016 used Lovenox prior to R knee replacement surg and bridged back onto warfarin 11/2017 hospitalized, for post op bleeding after teeth removal, with adrenal crisis 09/10/2020 INR 2.8 continue current regimen, have monthly nurse visits for INR checks until follow-up with me in 3 months 10/10/2020 INR 1.9, continue current regimen, nurse visit for INR check in 1 month and follow-up here middle of December after labs 12/25/20 INR 2.6 continue current regimen, nurse visit for INR check in 1 month and 2 months, follow-up here in 3 Degenerative joint disease Diabetes mellitus, type II Erectile dysfunction Samples given in the past, currently unavailable Esophageal reflux Factor V deficiency 2007, taking warfarin since this time Flying phobia takes alprazolam as needed for flying, participating in Activities of considerable height. discussed medication use, rationale and side effects. Hyperlipidemia Hypertension, essential, benign 12/25/2020 stable on amlodipine 10mg , lisinopril 60mg, hydrochlorothiazide 25mg, spironolactone 25mg and potassium 10mg and Toprol 25 mg daily. Follow- up 3 months Hypertriglyceridemia 06/27/2019 continues to have elevated triglycerides, although improved. encouraged working on diet, exercise and working for weight loss. continue pravastatin 40mg and gemfibrozil 600 mg BID 10/23/2019 deteriorated, discussed results, encouraged healthy diet, exercise check again in 3 months, continue pravastatin and gemfibrozil 01/29/2020 improved from last check, plan to recheck in 3 months then follow- up with me 05/13/2020 most recent results deteriorated, encouraged healthy diet, exercise, continue pravastatin and gemfibrozil, recheck 3 months 09/10/2020 improved, continue pravastatin and gemfibrozil, recheck in 3 months 12/25/2020 return for fasting labs, anticipate lab work and follow-up every 4 months Iron deficiency anemia followed by gastroenterology. 2005. 2011 endoscopy done for severe iron deficiency anemia=hiatal hernia, possible gastric outlet obstruction from pyloric stenosis 06/11/2020 recently seen by [facility], plan to obtain CBC and stool studies in 1 month and if nothing seen considering a PillCam with [facility]. 09/10/2020 reviewed CBC, in and around the same, last note from [facility] that he will need PillCam as the next step in evaluation, forward CBC to Dr. Arreola's office care home current use of anticoagulant therapy Peptic ulcer disease 12/25/[address] Arreola Pre-diabetes last A1c 05/01/15= 5.4 07/07/17 A1c= 5.3 04/28/2020 A1c 5.8 Right knee pain 01/29/2020 nerve pain likely, continue to monitor and for persisting symptoms could consider gabapentin or similar Screening PSA (prostate specific antigen) Surgical History H/O colonoscopy (12/29/16) polyp found on first in 2006 and again [address] dowd. 2016 last colonoscopy 08/02/17 record release signed to obtain last colonoscopy results 06/01/20 Dr. Gamboa repeat 7 years H/O endoscopy 2005. 2011 for severe iron deficiency anemia, hiatal hernia, possible gastric outlet obstruction from pyloric stenosis History of adenoidectomy History of appendectomy History of back surgery 2003, 2011 low back surgery x 2 History of tonsillectomy Status post right knee replacement 07/02/16 continues physical therapy, orthopedics switched him from hydrocodone to Percocet, request records from orthopedics Family History Mother/69 History of secondary malignant neoplasm of bone and bone marrow resulted in Diabetes mellitus Father/71 Cardiac disease resulted in Diabetes mellitus Social History adopted: No caregiver/support person: No foster care: No household members: spouse housing: house lives independently: Yes marital status: education level: college service: No halfway: No 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 hx recent travel: Yes sexually active: Yes other: 2 children smoking status: Former smoker quit date: 12/25/93 alcohol intake frequency: a few times a month substance use type: does not use MEDS/ALLERGIES Home Medications and Allergies Home Medications Medication Instructions Recorded Confirmed Type vitamin E (dl, acetate) 180 mg 400 unit PO HS cap 01/22/15 02/13/21 History (400 unit) capsule sildenafil (pulm.hypertension) 20 See Rx Instructions .ROUTE 10/22/19 02/13/21 Rx mg tablet .COMPLEX #90 unknown measurement unit code: tablet ascorbic acid (vitamin C) 500 mg 1 g PO QDAY tab 10/09/20 02/13/21 History chewable tablet cholecalciferol (vitamin D3) 100 See Rx Instructions PO QDAY cap 10/09/20 02/13/21 History mcg (4,000 unit) capsule ferrous sulfate 325 mg (65 mg See Rx Instructions PO BID tab 10/09/20 02/13/21 History iron) tablet hydrocortisone 20 mg tablet See Rx Instructions .ROUTE 10/09/20 02/13/21 History .COMPLEX unknown measurement unit code: tablet multivitamin,kp-bars-rctwpbwj 1 tab PO QDAY tab 10/09/20 02/13/21 History fludrocortisone 0.1 mg tablet See Rx Instructions .ROUTE 11/28/20 02/13/21 Rx .COMPLEX #90 tab alprazolam 0.5 mg tablet 0.5 mg PO .COMPLEX #30 tab 12/25/20 02/13/21 Rx metoprolol succinate 25 mg 25 mg PO QHS #90 tab 01/08/21 02/13/21 Rx tablet,extended release 24 hr lisinopril 20 mg tablet See Rx Instructions .ROUTE 01/13/21 02/13/21 Rx .COMPLEX #90 tab lisinopril 20 See Rx Instructions .ROUTE 01/13/21 02/13/21 Rx mg-hydrochlorothiazide 12.5 mg .COMPLEX #180 tablet tablet pravastatin 40 mg tablet See Rx Instructions .ROUTE 01/13/21 02/13/21 Rx .COMPLEX #90 tab spironolactone 25 mg tablet See Rx Instructions .ROUTE 01/13/21 02/13/21 Rx .COMPLEX #90 tab amlodipine 10 mg tablet See Rx Instructions .ROUTE 01/14/21 02/13/21 Rx .COMPLEX #90 tab gemfibrozil 600 mg tablet See Rx Instructions .ROUTE 01/14/21 02/13/21 Rx .COMPLEX #180 tab potassium chloride 10 mEq See Rx Instructions .ROUTE 01/14/21 02/13/21 Rx tablet,extended release .COMPLEX #90 tab hydrocodone 10 mg-acetaminophen 1 - 2 tab PO TID PRN #90 tab 02/06/21 02/13/21 Rx 325 mg tablet methocarbamol 750 mg tablet See Rx Instructions .ROUTE 02/06/21 02/13/21 Rx .COMPLEX #90 unknown measurement unit code: tablet warfarin 5 mg tablet 5 mg PO .COMPLEX tab 02/13/21 02/13/21 History Allergies Allergy/AdvReac Type Severity Reaction Status Date / Time cephalexin [From Keflex] Allergy Mild Itching Verified 02/25/21 10:29 EXAM Constitutional Vitals: Temp Pulse Resp BP Pulse Ox 97.3 F 104 H 12 104/94 100 02/25/21 10:29 02/25/21 17:45 02/25/21 17:45 02/25/21 17:45 02/25/21 17:45 DATA Data Completed and Pending Labs: Labs from last 24 hours 02/25/21 02/25/21 02/25/21 17:52 14:48 11:40 WBC RBC Hgb Hct POC Hct Pending MCV MCH MCHC RDW Plt Count MPV Neut % (Auto) Lymph % (Auto) [place] % (Auto) Eos % (Auto) Baso % (Auto) Lymph # (Auto) [place] # (Auto) Eos # (Auto) Baso # (Auto) Absolute Neutrophils POC PT 54.1 H POC INR 4.9 H POC Sodium Pending Sodium POC Potassium Pending Potassium POC Chloride Pending Chloride Carbon Dioxide POC Total CO2 Pending Anion Gap POC BUN Pending BUN Creatinine POC Creatinine Pending GFR Calculation Glucose POC Glucose Pending Calcium POC WB Ioniz Calcium Pending Total Bilirubin AST ALT Alkaline Phosphatase Troponin T 0.01 Total Protein Albumin Globulin Albumin/Globulin Ratio 02/25/21 02/25/21 02/25/21 11:40 11:40 11:40 WBC 14.7 H RBC 1.45 L Hgb 5.1 L* Hct 14.7 L* POC Hct < 15 L* MCV 101.4 H MCH 35.2 H MCHC 34.7 RDW 13.9 Plt Count 192 MPV 10.4 Neut % (Auto) 80.5 H Lymph % (Auto) 8.9 L [place] % (Auto) 10.2 Eos % (Auto) 0.3 Baso % (Auto) 0.1 Lymph # (Auto) 1.30 L [place] # (Auto) 1.50 H Eos # (Auto) 0.05 Baso # (Auto) 0.01 Absolute Neutrophils 11.81 H POC PT 58.9 H POC INR 5.3 H POC Sodium 141 Sodium 141 POC Potassium 3.7 Potassium 3.8 POC Chloride 111 H Chloride 107 Carbon Dioxide 17 L POC Total CO2 18 L Anion Gap 17.0 H POC BUN 106 H* BUN 91 H Creatinine 1.5 H POC Creatinine 1.8 H GFR Calculation 46 Glucose 117 H POC Glucose 121 H Calcium 9.0 POC WB Ioniz Calcium 1.20 Total Bilirubin 0.2 AST 13 ALT 13 Alkaline Phosphatase 51 Troponin T Total Protein 5.5 L Albumin 3.8 Globulin 1.7 L Albumin/Globulin Ratio 2.2 A/P Narrative A/P Narrative: Assessment: 71 year old male with a history of hypertension, a drenal insufficiency, CKD, Factor V Leiden on Coumadin who had an EGD on 02/18/21 along with two polypectomies of two small duodenal polyps as well as a biopsy of the jejunum. #Post duodenal polypectomy bleed #Acute blood loss anemia #Elevated INR -s/p FFP and IV Vit K #Factor V Leiden #Adrenal insufficiency #Chronic kidney disease #History of hypertension #Hx of recurrent GI bleeds Plan -Trend hemoglobin, transfuse for hemoglobin < 7 or symptomatic anemia. -Protonix IV BID. -Hold Warfarin, follow INR. -Follow renal function, check iron studies. -Stress dose Hydrocortisone IV Q8 hrs for now -Clear liquid diet now and NPO after midnight. -Home medication reconciliation, hold home antihypertensives. -GI consult-Dr. Amanda planning for EGD tomorrow AM. 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
[2021-02-25] MEDS ORDERED: ONDANSETRON 4 MG/2 ML VIAL IV PRN (20:03)
[2021-02-25] MEDS ORDERED: ACETAMINOPHEN 325 MG TABLET PO PRN (20:03)
[2021-02-25] MEDS ORDERED: POLYETHYLENE GLYCOL 3350 17 GM PACKET PO PRN (20:03)
[2021-02-26] MEDS: HYDROCORTISONE SOD SUCC 100 MG VIAL IV SCH ×3 (00:57→14:55)
[2021-02-26] MEDS: PANTOPRAZOLE 40 MG VIAL IV SCH ×3 (00:58→19:11)
[2021-02-26] MEDS: SENNOSIDES 1 TABLET PO SCH ×2 (00:59→20:57)
[2021-02-26] MEDS: 0.9 % SODIUM CHLORIDE 10 ML SYRINGE IV SCH ×4 (00:59→22:07)
[2021-02-26] MEDS ORDERED: 0.9 % SODIUM CHLORIDE 250 ML IV SCH (04:15)
--- NOTE | 2021-02-26 06:18 | EKG ---
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
--- NOTE | 2021-02-26 06:23 | EKG ---
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
[2021-02-26 09:25] LABS: INR 1.5 (0.9-1.1); Prothrombin Time 18.9 sec (11.9-14.5)
--- NOTE | 2021-02-26 11:50 | Internal Medicine Consult Note ---
HPI Data of Consult Consult date: 02/26/21 Primary Care Provider: PETAR Sood Consult Narrative Patient Information: Note initiated : 02/26/21 at 11:46 am Service Date, if different from initiated Date: [] Patient: Dennis Robertson 71 y/o M admitted on 02/25/21 for Blood in stool & urine. Chief Complaint: [melena, anemia, UGI bleed] Mr Ailyn is a 71 year old white male with on Coumadin d/t a history of Factor V Leiden who has a long history of iron deficiency anemia. EGD (11/2019), colon (05/2020) and PillCam (10/2020) did not reveal a cause, but PillCam showed jejunal polyps, so the patient underwent single balloon enteroscopy by Dr. Riggs at [facility] with multiple duodenal polypectomy 02/18/21. Four days afterward, he developed melena. He has not seen melena since 02/23. He takes iron supplement and takes pepto bismol at least every 2 days ( who is at bedside believes it is more often) due to a "queasy stomach". On careful questioning, he denies dyspepsia but complains of nausea. He recevied a unit of PRBC last night as well as FFP and vitamin K. Hemglobin up from 5 to 8.4. INR down from 5.3 to 1.5. 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 resolved. seen at [facility]. can't take NSAIDs Acute prerenal azotemia Adrenal insufficiency 09/2007. 07/21/18 continue care with endocrinology Anemia has had a couple transfusions over the years Chronic low back pain pain contract signed 09/10/2020 total morphine equivalent= 30. saw Terry at [facility] Discussed medication benefit, risks and side effects. Discussed nonpharmacologic ways to treat pain, encouraged gentle stretching, range of motion, improving posture, walking program and use of ice and/or heat. 09/10/2020 stable on #90 hydrocodone 10/325, urine drug screen today 12/25/2020 stable Chronic thumb pain, bilateral trial of topical 3% diclofenac ordered to be compounded for patient. 03/02/16 improved. patient never picked up Rx due to cost Coagulation defect factor V deficiency prior to right knee surgery he was taking warfarin 5mg daily 05/2016 used Lovenox prior to R knee replacement surg and bridged back onto warfarin 11/2017 hospitalized, for post op bleeding after teeth removal, with adrenal crisis 09/10/2020 INR 2.8 continue current regimen, have monthly nurse visits for INR checks until follow-up with me in 3 months 10/10/2020 INR 1.9, continue current regimen, nurse visit for INR check in 1 month and follow-up here middle of December after labs 12/25/20 INR 2.6 continue current regimen, nurse visit for INR check in 1 month and 2 months, follow-up here in 3 Degenerative joint disease Diabetes mellitus, type II Erectile dysfunction Samples given in the past, currently unavailable Esophageal reflux Factor V deficiency 2007, taking warfarin since this time Flying phobia takes alprazolam as needed for flying, participating in Activities of considerable height. discussed medication use, rationale and side effects. Hyperlipidemia Hypertension, essential, benign 12/25/2020 stable on amlodipine 10mg , lisinopril 60mg, hydrochlorothiazide 25mg, spironolactone 25mg and potassium 10mg and Toprol 25 mg daily. Follow- up 3 months Hypertriglyceridemia 06/27/2019 continues to have elevated triglycerides, although improved. encou raged working on diet, exercise and working for weight loss. continue pravastatin 40mg and gemfibrozil 600 mg BID 10/23/2019 deteriorated, discussed results, encouraged healthy diet, exercise check again in 3 months, continue pravastatin and gemfibrozil 01/29/2020 improved from last check, plan to recheck in 3 months then follow- up with me 05/13/2020 most recent results deteriorated, encouraged healthy diet, exercise, continue pravastatin and gemfibrozil, recheck 3 months 09/10/2020 improved, continue pravastatin and gemfibrozil, recheck in 3 months 12/25/2020 return for fasting labs, anticipate lab work and follow-up every 4 months Iron deficiency anemia followed by gastroenterology. 2005. 2011 endoscopy done for severe iron deficiency anemia=hiatal hernia, possible gastric outlet obstruction from pyloric stenosis 06/11/2020 recently seen by [facility], plan to obtain CBC and stool studies in 1 month and if nothing seen considering a PillCam with [facility]. 09/10/2020 reviewed CBC, in and around the same, last note from [facility] states that he will need PillCam as the next step in evaluation, forward CBC to Dr. Arreola's office alf current use of anticoagulant therapy Peptic ulcer disease 12/25/[address] Arreola Pre-diabetes last A1c 05/01/15= 5.4 07/07/17 A1c= 5.3 04/28/2020 A1c 5.8 Right knee pain 01/29/2020 nerve pain likely, continue to monitor and for persisting symptoms could consider gabapentin or similar Screening PSA (prostate specific antigen) Surgical History H/O colonoscopy (12/29/16) polyp found on first in 2006 and again [address] dowd. 2016 last colonoscopy 08/02/17 record release signed to obtain last colonoscopy results 06/01/20 Dr. Gamboa repeat 7 years H/O endoscopy 2005. 2011 for severe iron deficiency anemia, hiatal hernia, possible gastric outlet obstruction from pyloric stenosis History of adenoidectomy History of appendectomy History of back surgery 2003, 2011 low back surgery x 2 History of tonsillectomy Status post right knee replacement 07/02/16 continues physical therapy, orthopedics switched him from hydrocodone to Percocet, request records from orthopedics Family History Mother/69 History of secondary malignant neoplasm of bone and bone marrow resulted in Diabetes mellitus Father/71 Cardiac disease resulted in Diabetes mellitus Social History adopted: No caregiver/support person: No foster care: No household members: spouse housing: house lives independently: Yes marital status: education level: college service: No long term: No 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 hx recent travel: Yes sexually active: Yes other: 2 children smoking status: Former smoker quit date: 12/25/93 alcohol intake frequency: a few times a month substance use type: does not use MEDS/ALLERGIES Home Medications and Allergies Home Medications Medication Instructions Recorded Confirmed Type vitamin E (dl, acetate) 180 mg 400 unit PO HS cap 01/22/15 02/25/21 History (400 unit) capsule ascorbic acid (vitamin C) 500 mg 1 g PO HS tab 10/09/20 02/25/21 History chewable tablet cholecalciferol (vitamin D3) 100 300 mcg PO HS cap 10/09/20 02/25/21 History mcg (4,000 unit) capsule ferrous sulfate 325 mg (65 mg 1,300 mg PO HS tab 10/09/20 02/25/21 History iron) tablet hydrocortisone 20 mg tablet 40 mg PO HS unknown measurement 10/09/20 02/25/21 History unit code: tablet multivitamin,ap-gyzg-zlljveun 1 tab PO HS tab 10/09/20 02/25/21 History metoprolol succinate 25 mg 25 mg PO QHS #90 tab 01/08/21 02/25/21 Rx tablet,extended release 24 hr hydrocodone 10 mg-acetaminophen 1 - 2 tab PO TID PRN #90 tab 02/06/21 02/25/21 Rx 325 mg tablet warfarin 5 mg tablet 5 mg PO SUTUTHSA tab 02/13/21 02/25/21 History alprazolam 0.5 mg PO PRN PRN 02/25/21 02/25/21 History amlodipine 10 mg PO HS 02/25/21 02/25/21 History fludrocortisone 0.1 mg PO HS 02/25/21 02/25/21 History gemfibrozil 1,200 mg PO HS 02/25/21 02/25/21 History hydrocortisone 20 mg PO HS 02/25/21 02/25/21 History lisinopril 20 mg PO HS 02/25/21 02/25/21 History lisinopril-hydrochlorothiazide 2 tab PO HS 02/25/21 02/25/21 History methocarbamol 750 mg PO Q8HP PRN 02/25/21 02/25/21 History potassium chloride 10 meq PO HS 02/25/21 02/25/21 History pravastatin 40 mg PO HS 02/25/21 02/25/21 History sildenafil (pulm.hypertension) 20 mg PO HS 02/25/21 02/25/21 History spironolactone 25 mg PO HS 02/25/21 02/25/21 History warfarin 2.5 mg PO MOWEFR 02/25/21 02/25/21 History Allergies Allergy/AdvReac Type Severity Reaction Status Date / Time cephalexin [From Keflex] Allergy Mild Itching Verified 02/25/21 10:29 EXAM Constitutional Vitals: Temp Pulse Resp BP Pulse Ox 97.2 F 74 16 104/60 97 02/26/21 07:26 02/26/21 07:26 02/26/21 07:26 02/26/21 07:26 02/26/21 07:26 Head Head exam: Present atraumatic and normal inspection Eye Eye exam: Present normal appearance ENT ENT exam: Present normal exam Neck Neck exam: Present normal inspection Respiratory Respiratory exam: Present normal respiratory exam and CTAB; Absent rales, rhonchi, stridor and wheezes Cardiovascular Cardiovascular exam: Present normal rate and rhythm; Absent gallop, rubs and systolic murmur GI/Abdominal GI/Abdominal exam: Present normal bowel sounds and soft; Absent mass, organomeg kenya and tenderness Neurological Exam Neurological exam: Present alert and oriented X3 Psychiatric Psychiatric exam: Present normal affect and normal mood DATA Data Completed and Pending Labs: Labs from last 24 hours 02/26/21 02/26/21 02/26/21 09:30 05:50 05:50 WBC RBC Hgb 8.4 L Hct POC Hct MCV MCH MCHC RDW Plt Count MPV Neut % (Auto) Lymph % (Auto) Harney % (Auto) Eos % (Auto) Baso % (Auto) Lymph # (Auto) Harney # (Auto) Eos # (Auto) Baso # (Auto) Absolute Neutrophils POC PT PT 18.9 H POC INR INR 1.5 H POC Sodium Sodium Pending POC Potassium Potassium Pending POC Chloride Chloride Pending Carbon Dioxide Pending POC Total CO2 Anion Gap Pending POC BUN BUN Pending Creatinine Pending POC Creatinine GFR Calculation Pending Glucose Pending POC Glucose Uric Acid Pending Calcium Pending POC WB Ioniz Calcium Phosphorus Pending Magnesium Pending Iron Pending TIBC Pending Unsat Iron Binding Pending Transferrin % Sat Pending Ferritin 1226.0 H Total Bilirubin Pending Direct Bilirubin Pending GGT Pending AST Pending ALT Pending Alkaline Phosphatase Pending Lactate Dehydrogenase Pending Troponin T Total Protein Pending Albumin Pending Globulin Pending Albumin/Globulin Ratio Pending Triglycerides Pending 02/26/21 02/25/21 02/25/21 02:06 20:35 17:52 WBC RBC Hgb 6.8 L* 7.0 L* Hct POC Hct 18 L* MCV MCH MCHC RDW Plt Count MPV Neut % (Auto) Lymph % (Auto) Harney % (Auto) Eos % (Auto) Baso % (Auto) Lymph # (Auto) [place] # (Auto) Eos # (Auto) Baso # (Auto) Absolute Neutrophils POC PT PT POC INR INR POC Sodium 141 Sodium POC Potassium 3.6 Potassium POC Chloride 108 Chloride Carbon Dioxide POC Total CO2 21 L Anion Gap POC BUN 96 H BUN Creatinine POC Creatinine 1.7 H GFR Calculation Glucose POC Glucose 101 Uric Acid Calcium POC WB Ioniz Calcium 1.18 Phosphorus Magnesium Iron TIBC Unsat Iron Binding Transferrin % Sat Ferritin Total Bilirubin Direct Bilirubin GGT AST ALT Alkaline Phosphatase Lactate Dehydrogenase Troponin T Total Protein Albumin Globulin Albumin/Globulin Ratio Triglycerides 02/25/21 02/25/21 02/25/21 14:48 11:40 11:40 WBC RBC Hgb Hct POC Hct < 15 L* MCV MCH MCHC RDW Plt Count MPV Neut % (Auto) Lymph % (Auto) Harney % (Auto) Eos % (Auto) Baso % (Auto) Lymph # (Auto) [place]ney # (Auto) Eos # (Auto) Baso # (Auto) Absolute Neutrophils POC PT 54.1 H PT POC INR 4.9 H INR POC Sodium 141 Sodium 141 POC Potassium 3.7 Potassium 3.8 POC Chloride 111 H Chloride 107 Carbon Dioxide 17 L POC Total CO2 18 L Anion Gap 17.0 H POC BUN 106 H* BUN 91 H Creatinine 1.5 H POC Creatinine 1.8 H GFR Calculation 46 Glucose 117 H POC Glucose 121 H Uric Acid Calcium 9.0 POC WB Ioniz Calcium 1.20 Phosphorus Magnesium Iron TIBC Unsat Iron Binding Transferrin % Sat Ferritin Total Bilirubin 0.2 Direct Bilirubin GGT AST 13 ALT 13 Alkaline Phosphatase 51 Lactate Dehydrogenase Troponin T 0.01 Total Protein 5.5 L Albumin 3.8 Globulin 1.7 L Albumin/Globulin Ratio 2.2 Triglycerides 02/25/21 02/25/21 11:40 11:40 WBC 14.7 H RBC 1.45 L Hgb 5.1 L* Hct 14.7 L* POC Hct MCV 101.4 H MCH 35.2 H MCHC 34.7 RDW 13.9 Plt Count 192 MPV 10.4 Neut % (Auto) 80.5 H Lymph % (Auto) 8.9 L Harney % (Auto) 10.2 Eos % (Auto) 0.3 Baso % (Auto) 0.1 Lymph # (Auto) 1.30 L Harney # (Auto) 1.50 H Eos # (Auto) 0.05 Baso # (Auto) 0.01 Absolute Neutrophils 11.81 H POC PT 58.9 H PT POC INR 5.3 H INR POC Sodium Sodium POC Potassium Potassium POC Chloride Chloride Carbon Dioxide POC Total CO2 Anion Gap POC BUN BUN Creatinine POC Creatinine GFR Calculation Glucose POC Glucose Uric Acid Calcium POC WB Ioniz Calcium Phosphorus Magnesium Iron TIBC Unsat Iron Binding Transferrin % Sat Ferritin Total Bilirubin Direct Bilirubin GGT AST ALT Alkaline Phosphatase Lactate Dehydrogenase Troponin T Total Protein Albumin Globulin Albumin/Globulin Ratio Triglycerides A/P Assessment and plan (1) UGIB (upper gastrointestinal bleed): Status: Acute Comment: Agree with hospitalist that this is likely postpolypectomy bleed, although in the setting of supratherapeutic INR, spontaneous bleeding can occur. We will proceed with push enteroscopy. Patient advised to discontinue peptobismol as it increases INR. Will follow up as an outpatient to discuss other strategies to manage nausea. Patient advised of possible risks with push enterosocpy such as bleeding, perforation, infection, reaction to sedation regimen, among others. Time Spent With Patient Time: Total time spent is greater than 50% in coordination of care (as documented) at patient's floor/unit and/or counseling patient: Total time spent with greater than 50% in coordination of care (as documented) at patient's floor/unit and/or counseling patient:: 25 - 35 minutes
[2021-02-26] MEDS ORDERED: KETAMINE 50 MG/ML ML IV PRN (12:44)
[2021-02-26] MEDS ORDERED: MIDAZOLAM 2 MG/2 ML VIAL IV SCH (12:45)
[2021-02-26] MEDS ORDERED: PROPOFOL 200 MG/20 ML VIAL IV SCH (12:45)
[2021-02-26] MEDS ORDERED: MIDAZOLAM 2 MG/2 ML VIAL ONE (12:52)
[2021-02-26] MEDS ORDERED: PROPOFOL 200 MG/20 ML VIAL IV ONE (12:52)
[2021-02-26 13:09] LABS: ALT/SGPT 14 U/L (<40); AST/SGOT 15 U/L (<40); Albumin 3.9 gm/dL (3.2-5.2); Albumin/Globulin Ratio 1.9 (1.0-2.3); Alkaline Phosphatase 57 U/L (39-117); Bilirubin,Direct < 0.2 mg/dL (0-0.3); Bilirubin,Total 0.2 mg/dL (0.1-1.0); Blood Urea Nitrogen 63 mg/dL (8-23); Calcium 9.1 mg/dL (8.6-10.4); Carbon Dioxide 19 mmol/L (22-30); Chloride 110 mmol/L (96-108); Globulin 2.1 gm/dL (2.2-3.7); Glomerular Filtration Rate 50; Glucose 119 mg/dL (70-105); Lactate Dehydrogenase 143 U/L (135-225); Phosphorous 3.5 mg/dL (2.5-4.5); Triglycerides 330 mg/dL (<150); Uric Acid 11.1 mg/dL (2.5-8.0)
[2021-02-26 13:10] LABS: Iron 200 ug/dL (61-157); TIBC Calculation 254 ug/dl (228-428); Transferrin % Saturation 79 % (20-50)
--- NOTE | 2021-02-26 16:06 | Internal Med Progress Note ---
SUBJECTIVE Subjective Patient information: Note initiated : 02/26/21 at 4:05 pm Service Date, if different from initiated Date: [] Patient: Dennis Robertson 71 y/o M admitted on 02/25/21 for Blood in stool & urine. Chief Complaint: [] Interval history: Mr. Robertson is a 71 year old male with a history of hypertension, adrenal insufficiency, CKD, Factor V Leiden on Coumadin who had an EGD on 02/18/21 along with two polypectomies of two small duodenal polyps as well as a biopsy of the jejunum. The patient says he started his coumadin the day after the procedure. Over the next weekend he developed progressive fatigue followed by exertional chest discomfort. A few days ago developed melanotic stools. He presented to the ED where he was found to have a hemoglobin of 5.1 and received multiple units of red blood cells. The patient's INR was 5.3, he wa s given multiple units of FFP and also vitamin K IV. Hospital medicine was asked to admit the patient. The initial EKG showed ST segment depressions in leads V3-V6 that resolved after the patient received blood transfusions. The patient's chest pain also resolved. 02/26: The patient required another unit of RBC this morning. EGD did not show active bleeding. GI ok with resuming coumadin as discussed with Katarzyna Talavera. Resumed home Cortef, discontinued stress dose IV Cortef. Follow hemoglobin in the morning and possible discharge if stable. Physical exam Head: Atraumatic, normal inspection. Eyes: normal appearance, no scleral icterus. Neck: full ROM Respiratory: no respiratory distress. Cardiovascular: normal rate and rhythm, S1, S2. GI/Abdominal: soft, nontender, no guarding. Extremities: full range of motion, nontender. Neurological: CN II-XII intact, intact motor, intact sensation. Psychiatric: normal mood. Skin: warm, normal color Constitutional Vitals: Vital Signs Temp Pulse Resp BP Pulse Ox 97.2 F 106 H 18 114/73 96 02/26/21 07:26 02/26/21 13:42 02/26/21 13:42 02/26/21 13:42 02/26/21 13:42 Period Temp Pulse Resp BP Sys/Rivero Pulse Ox Last 24 Hr 94.8 F-98.9 F 74-118 7-23 83-150/36-98 94-100 Intake and Output 02/26/21 02/26/21 02/26/21 05:59 13:59 21:59 Intake Total 100 325 480 Output Total 900 550 Balance -800 -225 480 Weight 84.323 kg 84.323 kg Patient Weight 02/27/21 05:59 Weight 84.323 kg Intake & Output: Intake & Output 02/26/21 02/26/21 02/26/21 05:59 13:59 21:59 Intake Total 100 325 480 Output Total 900 550 Balance -800 -225 480 Weight 84.323 kg 84.323 kg Intake: Oral 100 480 Blood Product 325 Output: Void Amount 900 550 Other: Meal Lunch Percent of Meal Consumed 100% Feeding Ability Independent Urine Appearance Clear Urine Color Bright Yellow OBJ DATA Labs CBC & Chem 7: 02/26/21 14:32 02/26/21 05:50 Labs: Abnormal Lab Results 02/26/21 02/26/21 02/26/21 14:32 09:30 05:50 WBC RBC Hgb 8.4 L 8.4 L Hct POC Hct MCV MCH Neut % (Auto) Lymph % (Auto) Lymph # (Auto) [place] # (Auto) Absolute Neutrophils POC PT PT POC INR INR POC Chloride Chloride 110 H Carbon Dioxide 19 L POC Total CO2 Anion Gap POC BUN BUN 63 H Creatinine 1.4 H POC Creatinine Glucose 119 H POC Glucose Uric Acid 11.1 H Iron 200 H Unsat Iron Binding 54 L Transferrin % Sat 79 H Ferritin 1226.0 H Total Protein Globulin 2.1 L Triglycerides 330 H 02/26/21 02/26/21 02/25/21 05:50 02:06 20:35 WBC RBC Hgb 6.8 L* 7.0 L* Hct POC Hct MCV MCH Neut % (Auto) Lymph % (Auto) Lymph # (Auto) [place] # (Auto) Absolute Neutrophils POC PT PT 18.9 H POC INR INR 1.5 H POC Chloride Chloride Carbon Dioxide POC Total CO2 Anion Gap POC BUN BUN Creatinine POC Creatinine Glucose POC Glucose Uric Acid Iron Unsat Iron Binding Transferrin % Sat Ferritin Total Protein Globulin Triglycerides 02/25/21 02/25/21 02/25/21 17:52 14:48 11:40 WBC RBC Hgb Hct POC Hct 18 L* < 15 L* MCV MCH Neut % (Auto) Lymph % (Auto) Lymph # (Auto) [place] # (Auto) Absolute Neutrophils POC PT 54.1 H PT POC INR 4.9 H INR POC Chloride 111 H Chloride Carbon Dioxide 17 L POC Total CO2 21 L 18 L Anion Gap 17.0 H POC BUN 96 H 106 H* BUN 91 H Creatinine 1.5 H POC Creatinine 1.7 H 1.8 H Glucose 117 H POC Glucose 121 H Uric Acid Iron Unsat Iron Binding Transferrin % Sat Ferritin Total Protein 5.5 L Globulin 1.7 L Triglycerides 02/25/21 02/25/21 11:40 11:40 WBC 14.7 H RBC 1.45 L Hgb 5.1 L* Hct 14.7 L* POC Hct MCV 101.4 H MCH 35.2 H Neut % (Auto) 80.5 H Lymph % (Auto) 8.9 L Lymph # (Auto) 1.30 L Park # (Auto) 1.50 H Absolute Neutrophils 11.81 H POC PT 58.9 H PT POC INR 5.3 H INR POC Chloride Chloride Carbon Dioxide POC Total CO2 Anion Gap POC BUN BUN Creatinine POC Creatinine Glucose POC Glucose Uric Acid Iron Unsat Iron Binding Transferrin % Sat Ferritin Total Protein Globulin Triglycerides Meds: Medications Acetaminophen (Acetaminophen 325 Mg Tablet) 650 mg PO Q6HP PRN; Protocol PRN Reason: Per Pain Protocol/Fever > 101 Last Admin: 02/26/21 01:13 Dose: 650 mg Documented by: Diagnostic Test (Pha) (Accu-Chek 1 Each Strip) 1 each FS UD PRN PRN Reason: Blood Sugar Stop: 02/26/21 20:44 Hydrocortisone Sodium Succinate (Hydrocortisone Sod Succ 100 Mg Vial) 50 mg IV Q8H KARLA Last Admin: 02/26/21 14:55 Dose: 50 mg Documented by: Sodium Chloride (Sodium Chloride 0.9%) 250 mls @ 20 mls/hr IV .[id number] KARLA Stop: 02/26/21 16:44 Last Admin: 02/26/21 04:18 Dose: 20 mls/hr Documented by: Ketamine HCl (Ketamine 50 Mg/Ml Ml) 50 mg IV ONCE PRN PRN Reason: Sedation Stop: 02/26/21 20:44 Midazolam HCl (Midazolam 2 Mg/2 Ml Vial) 0 mg IV ONCE KARLA Stop: 02/26/21 20:44 Last Admin: 02/26/21 13:23 Dose: 2 mg Documented by: Ondansetron HCl (Ondansetron 4 Mg/2 Ml Vial) 4 mg IV Q6HP PRN PRN Reason: Nausea And Vomiting Last Admin: 02/26/21 00:57 Dose: 4 mg Documented by: Pantoprazole Sodium (Pantoprazole 40 Mg Vial) 40 mg IV BIDAC [facility] Last Admin: 02/26/21 07:16 Dose: 40 mg Documented by: Polyethylene Glycol (Polyethylene Glycol 3350 17 Gm Packet) 17 gm PO DAILYP PRN PRN Reason: Constipation Propofol (Propofol 200 Mg/20 Ml Vial) 0 mg IV UD [facility] Stop: 02/26/21 20:44 Last Admin: 02/26/21 13:23 Dose: 200 mg Documented by: Senna (Sennosides 1 Tablet) 2 tab PO HS [facility] Last Admin: 02/26/21 00:59 Dose: Not Given Documented by: Sodium Chloride (0.9 % Sodium Chloride 10 Ml Syringe) 10 ml IV Q8 [facility] Last Admin: 02/26/21 14:59 Dose: 10 ml Documented by: A/P Narrative A/P Narrative: Assessment: 71 year old male with a history of hypertension, adrenal insufficiency, CKD, Factor V Leiden on Coumadin who had an EGD on 02/18/21 along with two polypectomies of two small duodenal polyps as well as a biopsy of the jejunum. #Post duodenal polypectomy bleed #Acute blood loss anemia #Factor V Leiden #Adrenal insufficiency #Chronic kidney disease #History of hypertension #Hx of recurrent GI bleeds Plan -Follow hemoglobin, transfuse for hemoglobin < 7 or symptomatic anemia. -Protonix IV BID. -Resumed coumadin per pharmacy. -Resumed home cortef. -Advanced diet to regular. -Essential home medications, hold antihypertensives for now. -GI consult following. -DVT ppx: SCD -Code status: Loom Control Chain Builder Spent With Patient Time: Total time spent is greater than 50% in coordination of care (as documented) at patient's floor/unit and/or counseling patient: QUALITY VTE Deep Vein Thrombosis/Pulmonary Embolism Present on Admission: No
[2021-02-26] MEDS ORDERED: HYDROcodone/APAP 10/325MG TABLET PO PRN (16:09)
[2021-02-26] MEDS ORDERED: METHOCARBAMOL 750 MG TABLET PO PRN (16:09)
[2021-02-26] MEDS ORDERED: ALPRAZolam 0.5 MG TABLET PO PRN (16:09)
[2021-02-26] MEDS ORDERED: WARFARIN 5 MG TABLET PO ONE (17:00)
[2021-02-26] MEDS ORDERED: HYDROCORTISONE 10 MG TABLET PO SCH (21:00)
[2021-02-26] MEDS ORDERED: GEMFIBROZIL 600 MG TABLET PO SCH (21:00)
[2021-02-26] MEDS ORDERED: METOPROLOL SUCCINATE 25 MG TAB.XL.24H PO SCH (21:00)
[2021-02-26] MEDS ORDERED: POTASSIUM CHLORIDE 10 MEQ TABLET PO SCH (21:00)
[2021-02-26] MEDS ORDERED: FLUDROCORTISONE 0.1 MG TABLET PO SCH (21:00)
[2021-02-26] MEDS ORDERED: SIMVASTATIN 20 MG TABLET PO SCH (21:00)
[2021-02-26] MEDS ORDERED: FERROUS SULFATE 325 MG TABLET PO SCH (21:00)
[2021-02-27] MEDS: 0.9 % SODIUM CHLORIDE 10 ML SYRINGE IV SCH (05:58)
[2021-02-27] MEDS: PANTOPRAZOLE 40 MG VIAL IV SCH (07:04)
[2021-02-27 08:17] LABS: Basophils # (Auto) 0.01 K/mcL (0.00-0.30); Basophils % (Auto) 0.1 % (0.0-2.0); Eosinophils # (Auto) 0.06 K/mcL (0.00-0.70); Eosinophils % (Auto) 0.6 % (0.0-7.0); Hematocrit 25.5 % (40.1-51.0); Hemoglobin 8.2 g/dL (13.7-17.5); Lymphocytes # (Auto) 1.07 K/mcL (1.50-4.80); Mean Cell Volume 99.6 fL (80.0-100.0); Mean Corpuscular HGB Conc 32.2 g/dL (31.0-36.0); Mean Platelet Volume 10.4 fL (7.4-10.4); Monocytes # (Auto) 0.96 K/mcL (0.10-0.90); Monocytes % (Auto) 9.9 % (1.0-12.0); Neutrophils % (Auto) 78.4 % (38.0-78.0); Platelet Count 163 K/mcL (140-440); RBC 2.56 M/mcL (4.63-6.08); WBC 9.7 K/mcL (4.5-11.0)
[2021-02-27 08:43] LABS: INR 1.2 (0.9-1.1); Prothrombin Time 15.7 sec (11.9-14.5)
[2021-02-27 08:44] LABS: ALT/SGPT 13 U/L (<40); AST/SGOT 15 U/L (<40); Albumin 3.9 gm/dL (3.2-5.2); Albumin/Globulin Ratio 1.9 (1.0-2.3); Alkaline Phosphatase 54 U/L (39-117); Bilirubin,Direct < 0.2 mg/dL (0-0.3); Bilirubin,Total 0.3 mg/dL (0.1-1.0); Blood Urea Nitrogen 46 mg/dL (8-23); Calcium 9.1 mg/dL (8.6-10.4); Carbon Dioxide 19 mmol/L (22-30); Chloride 108 mmol/L (96-108); Globulin 2.1 gm/dL (2.2-3.7); Glomerular Filtration Rate 50; Glucose 109 mg/dL (70-105); Lactate Dehydrogenase 154 U/L (135-225); Phosphorous 2.9 mg/dL (2.5-4.5); Triglycerides 261 mg/dL (<150); Uric Acid 10.9 mg/dL (2.5-8.0)
--- NOTE | 2021-02-27 09:40 | EGD Procedure Note ---
EGD Procedure Notes Procedure Information Patient information: Note initiated : 02/27/21 at 9:36 am Service Date: 02/26/21 Patient: Dennis Robertson 71 y/o M admitted on 02/25/21 for Blood in stool & urine. Pre-op diagnosis general: Post polyptectomy bleed. Post-Op Diagnosis general: Status post polypectomy with stricture at polypectomy site in duodenum. Procedure: Enteroscopy Procedure Narrative: The procedure, alternatives and risks were discussed with the patient and the patient's questions were answered. With endoscopist-administered intravenous sedation, the [id number] video pediatric colonoscope was introduced into the esophagus. The esophagus, stomach, duodenum and jejunum were examined sequentially. Pylorus was inflamed. The polypectomy site in the duodenum was seen with a stricture. The pediatric colonoscope would not traverse the stricture so the EGD scope was used to examine the distal duodenum and jejunum. Polypectomy site was seen and there was no bleeding or stigmata of rebleed. Assessment: Status post polypectomy with stricture at polypectomy site at junction of first and second portions of duodenum. He may be discharged home.
[2021-02-27] MEDS ORDERED: WARFARIN 5 MG TABLET PO ONE (11:00)
--- NOTE | 2021-02-27 11:17 | Discharge Summary ---
Discharge Provider Provider Patient information: Note initiated : 02/27/21 at 11:14 am Service Date, if different from initiated Date: [] Patient: Dennis Robertson 71 y/o M admitted on 02/25/21 for Blood in stool & urine. Chief Complaint: [] Date of admission: 02/25/21 19:55 Discharge date: 02/27/21 Primary care physician: PETAR Sood Consults: 02/25/21 12:19 Consult to Physician [CONS] Stat Comment: Consulting Provider: Davi Amanda Reason For Exam: Physician to Consult 02/25/21 12:40 Consult to Physician [CONS] Stat Comment: Consulting Provider: Junior Paredes Reason For Exam: Physician to Consult 02/25/21 20:03 Consult to Physician [CONS] Stat Comment: Consulting Provider: Davi Amanda Reason For Exam: Physician to Consult Consult to Physician [CONS] Urgent Comment: Consulting Provider: Davi Amanda Reason For Exam: Physician to Consult Discharge Meds Discharge Medications Home Medications vitamin E (dl, acetate) 180 mg (400 unit) capsule 400 unit PO HS cap 01/22/15 [History Confirmed 02/25/21 Last Taken 02/23/21 20:00] ascorbic acid (vitamin C) 500 mg chewable tablet 1 g PO HS tab 10/09/20 [History Confirmed 02/25/21 Last Taken 02/24/21 20:00] cholecalciferol (vitamin D3) 100 mcg (4,000 unit) capsule 300 mcg PO HS cap 10/09/20 [History Confirmed 02/25/21 Last Taken 02/24/21 20:00] ferrous sulfate 325 mg (65 mg iron) tablet 1,300 mg PO HS tab 10/09/20 [History Confirmed 02/25/21 Last Taken 02/24/21 20:00] hydrocortisone 20 mg tablet 40 mg PO HS unknown measurement unit code: tablet 10/09/20 [History Confirmed 02/25/21 Last Taken 02/24/21 20:00] multivitamin,[id number]-[id number] 1 tab PO HS tab 10/09/20 [History Confirmed 02/25/21 Last Taken 02/23/21 20:00] metoprolol succinate 25 mg tablet,extended release 24 hr 25 mg PO QHS #90 tab 01/08/21 [Rx Confirmed 02/25/21 Last Taken 02/24/21 20:00] hydrocodone 10 mg-acetaminophen 325 mg tablet 1 - 2 tab PO TID PRN #90 tab 02/06/21 [Rx Confirmed 02/25/21 Last Taken 02/23/21 20:00] warfarin 5 mg tablet 5 mg PO SUTUTHSA tab 02/13/21 [History Confirmed 02/25/21 Last Taken 02/24/21 20:00] alprazolam 0.5 mg PO PRN PRN 02/25/21 [History Confirmed 02/25/21 Last Taken Unknown] amlodipine 10 mg PO HS 02/25/21 [History Confirmed 02/25/21 Last Taken 02/24/21 20:00] fludrocortisone 0.1 mg PO HS 02/25/21 [History Confirmed 02/25/21 Last Taken 02/24/21 20:00] gemfibrozil 1,200 mg PO HS 02/25/21 [History Confirmed 02/25/21 Last Taken 02/24/21 20:00] hydrocortisone 20 mg PO HS 02/25/21 [History Confirmed 02/25/21 Last Taken 02/23/21 20:00] lisinopril 20 mg PO HS 02/25/21 [History Confirmed 02/25/21 Last Taken 02/24/21 20:00] lisinopril-hydrochlorothiazide 2 tab PO HS 02/25/21 [History Confirmed 02/25/21 Last Taken 02/24/21 20:00] methocarbamol 750 mg PO Q8HP PRN 02/25/21 [History Confirmed 02/25/21 Last Taken 02/23/21 20:00] potassium chloride 10 meq PO HS 02/25/21 [History Confirmed 02/25/21 Last Taken 02/24/21 20:00] pravastatin 40 mg PO HS 02/25/21 [History Confirmed 02/25/21 Last Taken 02/24/21 20:00] sildenafil (pulm.hypertension) 20 mg PO HS 02/25/21 [History Confirmed 02/25/21 Last Taken 02/24/21 20:00] spironolactone 25 mg PO HS 02/25/21 [History Confirmed 02/25/21 Last Taken 02/24/21 20:00] warfarin 2.5 mg PO MOWEFR 02/25/21 [History Confirmed 02/25/21 Last Taken 02/23/21 20:00] COURSE Hospital Course Hospital course: Mr. Robertson is a 71 year old male with a history of hypertension, adrenal insufficiency, CKD, Factor V Leiden on Coumadin who had an EGD on 02/18/21 along with two polypectomies of two small duodenal polyps as well as a biopsy of the jejunum. The patient says he started his coumadin the day after the procedure. Over the next weekend he developed progressive fatigue followed by exertional chest discomfort. A few days ago developed melanotic stools. He presented to the ED where he was found to have a hemoglobin of 5.1 and received multiple units of red blood cells. The patient's INR was 5.3, he was given multiple units of FFP and also vitamin K IV. Hospital medicine was asked to admit the patient. The initial EKG showed ST segment depressions in leads V3-V6 that resolved after the patient received blood transfusions. The patient's chest pain also resolved. 02/26: The patient required another unit of RBC this morning. EGD did not show active bleeding. GI ok with resuming coumadin as discussed with Katarzyna Talavera. Resumed home Cortef, discontinued stress dose IV Cortef. Follow hemoglobin in the morning and possible discharge if stable. 02/27: Hemoglobin stable, discharged to home with GI follow up in about one week. Physical exam Head: Atraumatic, normal inspection. Eyes: normal appearance, no scleral icterus. Neck: full ROM Respiratory: no respiratory distress. Cardiovascular: normal rate and rhythm, S1, S2. GI/Abdominal: soft, nontender, no guarding. Extremities: full range of motion, nontender. Neurological: CN II-XII intact, intact motor, intact sensation. Psychiatric: normal mood. Skin: warm, normal color Discharge diagnosis: Post polypectomy gastrointestinal bleed Time Spent with Patient Time attestation: Total time spent providing and/or coordinating discharge services: EXAM Constitutional Vitals: Temp Pulse Resp BP Pulse Ox 97.7 F 78 16 112/69 97 02/27/21 07:35 02/27/21 07:35 02/27/21 07:35 02/27/21 07:35 02/27/21 07:35 Discharge Data Data Completed and Pending Labs on day of discharge: Labs from last 24 hours 02/27/21 02/27/21 02/27/21 06:41 05:12 05:12 WBC 9.7 RBC 2.56 L Hgb 8.2 L Hct 25.5 L MCV 99.6 MCH 32.0 MCHC 32.2 RDW 16.0 H Plt Count 163 MPV 10.4 Neut % (Auto) 78.4 H Lymph % (Auto) 11.0 L Barnwell % (Auto) 9.9 Eos % (Auto) 0.6 Baso % (Auto) 0.1 Lymph # (Auto) 1.07 L Barnwell # (Auto) 0.96 H Eos # (Auto) 0.06 Baso # (Auto) 0.01 Absolute Neutrophils 7.59 PT 15.7 H INR 1.2 H Sodium 142 Potassium 3.5 Chloride 108 Carbon Dioxide 19 L Anion Gap 15.0 BUN 46 H Creatinine 1.4 H GFR Calculation 50 Glucose 109 H Uric Acid 10.9 H Calcium 9.1 Phosphorus 2.9 Magnesium 2.2 Iron TIBC Unsat Iron Binding Transferrin % Sat Total Bilirubin 0.3 Direct Bilirubin < 0.2 GGT 14 AST 15 ALT 13 Alkaline Phosphatase 54 Lactate Dehydrogenase 154 Total Protein 6.0 Albumin 3.9 Globulin 2.1 L Albumin/Globulin Ratio 1.9 Triglycerides 261 H 02/26/21 02/26/21 14:32 05:50 WBC RBC Hgb 8.4 L Hct MCV MCH MCHC RDW Plt Count MPV Neut % (Auto) Lymph % (Auto) Barnwell % (Auto) Eos % (Auto) Baso % (Auto) Lymph # (Auto) Barnwell # (Auto) Eos # (Auto) Baso # (Auto) Absolute Neutrophils PT INR Sodium 145 Potassium 3.6 Chloride 110 H Carbon Dioxide 19 L Anion Gap 16.0 BUN 63 H Creatinine 1.4 H GFR Calculation 50 Glucose 119 H Uric Acid 11.1 H Calcium 9.1 Phosphorus 3.5 Magnesium 2.1 Iron 200 H TIBC 254 Unsat Iron Binding 54 L Transferrin % Sat 79 H Total Bilirubin 0.2 Direct Bilirubin < 0.2 GGT 13 AST 15 ALT 14 Alkaline Phosphatase 57 Lactate Dehydrogenase 143 Total Protein 6.0 Albumin 3.9 Globulin 2.1 L Albumin/Globulin Ratio 1.9 Triglycerides 330 H Discharge Plan Patient/Caregiver Discharge Instructions Activity: increase activity as tolerated Diet: Regular Diet Prescriptions: Continued metoprolol succinate 25 mg tablet extended release 24 hr 25 mg PO QHS Qty: 90 RF: 0 hydrocodone-acetaminophen 10-325 mg tablet 1 - 2 tab PO TID PRN (Reason: Severe pain) Qty: 90 RF: 0 vitamin E (dl, acetate) 400 unit capsule 400 unit PO HS RF: 0 ascorbic acid (vitamin C) 500 mg tablet,chewable 1 g PO HS RF: 0 cholecalciferol (vitamin D3) 100 mcg (4,000 unit) capsule 300 mcg PO HS RF: 0 ferrous sulfate 325 mg (65 mg iron) tablet 1,300 mg PO HS RF: 0 multivitamin,[id number]-[id number] Tablet 1 tab PO HS RF: 0 hydrocortisone 20 mg tablet 40 mg PO HS RF: 0 warfarin 5 mg tablet 5 mg PO SUTUTHSA RF: 0 hydrocortisone 20 mg Tablet 20 mg PO HS RF: 0 warfarin 2.5 mg Tablet 2.5 mg PO MOWEFR RF: 0 lisinopril-hydrochlorothiazide 20-12.5 mg tablet 2 tab PO HS RF: 0 pravastatin 40 mg tablet 40 mg PO HS RF: 0 lisinopril 20 mg tablet 20 mg PO HS RF: 0 potassium chloride 10 mEq tablet extended release 10 meq PO HS RF: 0 spironolactone 25 mg tablet 25 mg PO HS RF: 0 alprazolam 0.5 mg tablet 0.5 mg PO PRN PRN (Reason: Anxiety) RF: 0 methocarbamol 750 mg tablet 750 mg PO Q8HP PRN (Reason: Pain) RF: 0 amlodipine 10 mg tablet 10 mg PO HS RF: 0 gemfibrozil 600 mg tablet 1,200 mg PO HS RF: 0 fludrocortisone 0.1 mg tablet 0.1 mg PO HS RF: 0 sildenafil (pulm.hypertension) 20 mg tablet 20 mg PO HS RF: 0 Follow Up Plan Follow up with: Katarzyna Huddleston ARNP [Primary Care Provider] - Katarzyna Talavera ARNP [Nurse Practitioner] - 03/05/21 (Follow up hospitalization for post polypectomy GI bleed. ) Patient Disposition: Home, Self-Care Overall status at discharge: patient is back to baseline Discharge Orders: Discharge Order (Routine); Ordered 02/27/21 Ordered By: Junior DUMONT VTE Deep Vein Thrombosis/Pulmonary Embolism Present on Admission: No
[2021-02-27] MEDS ORDERED: HYDROCORTISONE 10 MG TABLET PO SCH (21:00)
== END 2021-02-27 13:05 | disposition home or self-care (01) | DRG 920 ==
LOC: ED 10:27 → MEDSUR 19:55
PROVIDERS: ADMIT Internal Medicine; ATTEND Internal Medicine